=== PATIENT | female | born 1955 | race Caucasian/White ===

== ENCOUNTER 2020-01-24 07:09 | Outpatient (REF) | payer OTHER, SELFPAY ==
[2020-01-24 11:27] LABS: Estimated Average Glucose 148 mg/dL; Hemoglobin A1c % 6.8 %
[2020-01-24 11:45] LABS: Alanine Aminotransferase 60 U/L (0-31); Anion Gap 15 (12-20); Aspartate Amino Transferase 29 U/L (5-31); Blood Urea Nitrogen 14 mg/dL (9-16); Calcium 9.6 mg/dL (8.4-10.2); Carbon Dioxide 29 mmol/L (22-29); Chloride 103 mmol/L (96-108); Cholesterol 134 mg/dL; Estimated Glomerular Filt Rate > 60; Glucose Fasting 135 mg/dL (60-99); HDL Cholesterol 42 mg/dL; LDL Cholesterol Calculated 65 mg/dl; Potassium 4.7 mmol/l (3.3-5.1); Sodium 142 mmol/L (135-145); Triglycerides 139 mg/dL
[2020-01-24 11:57] LABS: Free T4 (Free Thyroxine) 1.13 ng/dL (0.71-1.85); Thyroid Stimulating Hormone 3.67 uIU/mL (0.32-4.0)
== END 2020-01-24 07:10 | disposition home or self-care (01) ==
LOC: HO.HMGCLDS 07:09
PROVIDERS: PCP Internal Medicine; Visit Provider Internal Medicine
DX: E11.9 Type 2 diabetes mellitus without complications (principal); I10 Essential (primary) hypertension; E78.5 Hyperlipidemia, unspecified; I25.10 Atherosclerotic heart disease of native coronary artery without angina pectoris
CPT/HCPCS: 80048; 80061; 83036; 84439; 84443; 84450; 84460

== ENCOUNTER 2020-11-21 08:59 | Outpatient (REF) | payer OTHER, SELFPAY ==
[2020-11-21 11:25] LABS: Estimated Average Glucose 140 mg/dL; Hemoglobin A1c % 6.5 %
[2020-11-21 11:26] LABS: Creatinine Urine 60.38 mg/dL; Microalbum/Creatinine Ratio Ur 9.9 ug/mg cr
[2020-11-21 11:30] LABS: Alanine Aminotransferase 33 U/L (0-31); Anion Gap 10 (12-20); Aspartate Amino Transferase 26 U/L (5-31); Blood Urea Nitrogen 12 mg/dL (9-16); Calcium 9.4 mg/dL (8.4-10.2); Carbon Dioxide 27 mmol/L (22-29); Chloride 107 mmol/L (96-108); Cholesterol 128 mg/dL; Estimated Glomerular Filt Rate > 60; Glucose Fasting 124 mg/dL (60-99); HDL Cholesterol 41 mg/dL; LDL Cholesterol Calculated 61 mg/dl; Potassium 4.2 mmol/L (3.3-5.1); Sodium 140 mmol/L (135-145); Triglycerides 132 mg/dL
[2020-11-21 11:44] LABS: Free T4 (Free Thyroxine) 1.04 ng/dL (0.71-1.85); Thyroid Stimulating Hormone 2.78 uIU/mL (0.32-4.0); Vitamin D 25-OH Total 22.2 ng/mL (>30)
== END 2020-11-21 09:00 | disposition home or self-care (01) ==
LOC: HO.HMGCLDS 08:59
PROVIDERS: PCP Internal Medicine; Visit Provider Internal Medicine
DX: E03.9 Hypothyroidism, unspecified (principal); E05.00 Thyrotoxicosis with diffuse goiter without thyrotoxic crisis or storm; E11.9 Type 2 diabetes mellitus without complications; E55.9 Vitamin D deficiency, unspecified; E78.5 Hyperlipidemia, unspecified; I10 Essential (primary) hypertension; I25.10 Atherosclerotic heart disease of native coronary artery without angina pectoris; K76.0 Fatty (change of) liver, not elsewhere classified; Z92.3 Personal history of irradiation; Z95.5 Presence of coronary angioplasty implant and graft
CPT/HCPCS: 36415; 80048; 80061; 82043; 82306; 83036; 84439; 84443; 84450; 84460

== ENCOUNTER 2021-08-31 07:03 | Outpatient (REF) | payer MEDICARE, SELFPAY ==
[2021-08-31 11:41] LABS: Estimated Average Glucose 140 mg/dL; Hemoglobin A1c % 6.5 %
[2021-08-31 11:57] LABS: Alanine Aminotransferase 47 U/L (0-31); Anion Gap 11 (12-20); Aspartate Amino Transferase 26 U/L (5-31); Blood Urea Nitrogen 13 mg/dL (9-16); Carbon Dioxide 27 mmol/L (22-29); Chloride 105 mmol/L (96-108); Cholesterol 157 mg/dL; Estimated Glomerular Filt Rate > 60; Glucose Fasting 145 mg/dL (60-99); HDL Cholesterol 38 mg/dL; LDL Cholesterol Calculated 67 mg/dl; Potassium 4.2 mmol/L (3.3-5.1); Sodium 139 mmol/L (135-145); Triglycerides 261 mg/dL
[2021-08-31 11:59] LABS: Free T4 (Free Thyroxine) 1.08 ng/dL (0.71-1.85); Thyroid Stimulating Hormone 4.73 uIU/mL (0.32-4.0); Vitamin D 25-OH Total 28.8 ng/mL (>30)
== END 2021-08-31 07:04 | disposition home or self-care (01) ==
LOC: HO.HMGCLDS 07:03
PROVIDERS: Visit Provider Internal Medicine
DX: E55.9 Vitamin D deficiency, unspecified (principal); E03.9 Hypothyroidism, unspecified; I10 Essential (primary) hypertension; E78.5 Hyperlipidemia, unspecified; E11.9 Type 2 diabetes mellitus without complications; Z78.0 Asymptomatic menopausal state
CPT/HCPCS: 36415; 80048; 80061; 82306; 83036; 84439; 84443; 84450; 84460

== ENCOUNTER 2021-12-06 07:00 | Outpatient (REF) | payer MEDICARE, SELFPAY ==
[2021-12-06 11:59] LABS: Creatinine Urine 153.41 mg/dL
[2021-12-06 12:04] LABS: Estimated Average Glucose 134 mg/dL; Hemoglobin A1c % 6.3 %
[2021-12-06 12:16] LABS: Alanine Aminotransferase 30 U/L (0-31); Anion Gap 14 (12-20); Aspartate Amino Transferase 24 U/L (5-31); Blood Urea Nitrogen 13 mg/dL (9-16); Calcium 9.8 mg/dL (8.4-10.2); Carbon Dioxide 28 mmol/L (22-29); Chloride 103 mmol/L (96-108); Cholesterol 178 mg/dL; Estimated Glomerular Filt Rate > 60; Glucose Fasting 141 mg/dL (60-99); HDL Cholesterol 42 mg/dL; LDL Cholesterol Calculated 91 mg/dl; Potassium 4.6 mmol/L (3.3-5.1); Sodium 140 mmol/L (135-145); Triglycerides 228 mg/dL
[2021-12-06 12:40] LABS: Free T4 (Free Thyroxine) 1.25 ng/dL (0.71-1.85); TSH reflex Free T4 3.17 uIU/mL (0.32-4.0); Vitamin D 25-OH Total 26.7 ng/mL (>30)
== END 2021-12-06 07:01 | disposition home or self-care (01) ==
LOC: HO.HMGCLDS 07:00
PROVIDERS: PCP Internal Medicine; Visit Provider Internal Medicine
DX: E11.9 Type 2 diabetes mellitus without complications (principal); E55.9 Vitamin D deficiency, unspecified; E78.5 Hyperlipidemia, unspecified; I10 Essential (primary) hypertension; E03.9 Hypothyroidism, unspecified
CPT/HCPCS: 36415; 80048; 80061; 82043; 82306; 83036; 84439; 84443; 84450; 84460

== ENCOUNTER 2022-03-08 08:32 | Outpatient (REF) | payer MEDICARE, SELFPAY ==
[2022-03-08 12:19] LABS: Estimated Average Glucose 134 mg/dL; Hemoglobin A1c % 6.3 %
[2022-03-08 12:39] LABS: Alanine Aminotransferase 42 U/L (0-31); Anion Gap 14 (12-20); Aspartate Amino Transferase 31 U/L (5-31); Blood Urea Nitrogen 16 mg/dL (9-16); Carbon Dioxide 28 mmol/L (22-29); Chloride 104 mmol/L (96-108); Cholesterol 165 mg/dL; Estimated Glomerular Filt Rate > 60; Glucose Fasting 124 mg/dL (60-99); HDL Cholesterol 41 mg/dL; LDL Cholesterol Calculated 90 mg/dl; Potassium 4.5 mmol/L (3.3-5.1); Sodium 141 mmol/L (135-145); Triglycerides 172 mg/dL
[2022-03-08 12:58] LABS: Creatinine Urine 175.78 mg/dL; Microalbum/Creatinine Ratio Ur 9.1 ug/mg cr
[2022-03-08 12:59] LABS: Free T4 (Free Thyroxine) 1.14 ng/dL (0.71-1.85); Thyroid Stimulating Hormone 2.81 uIU/mL (0.32-4.0); Vitamin D 25-OH Total 19.9 ng/mL (>30)
== END 2022-03-08 08:33 | disposition home or self-care (01) ==
LOC: HO.HMGCLDS 08:32
PROVIDERS: PCP Internal Medicine; Visit Provider Internal Medicine
DX: E11.9 Type 2 diabetes mellitus without complications (principal); E03.9 Hypothyroidism, unspecified; E78.5 Hyperlipidemia, unspecified; E55.9 Vitamin D deficiency, unspecified; I25.10 Atherosclerotic heart disease of native coronary artery without angina pectoris
CPT/HCPCS: 36415; 80048; 80061; 82043; 82306; 83036; 84439; 84443; 84450; 84460

== ENCOUNTER 2022-04-25 11:47 | Outpatient (REF) | payer MEDICARE, SELFPAY ==
--- NOTE | ~2022-04-25 | MM_ITS ---
EXAMINATION: MM SCREENING DIGITAL BREAST TOMOSYNTHESIS, BILATERAL CLINICAL INFORMATION: Screening. Asymptomatic. The lifetime risk of breast cancer based on the Tyrer-Cuzick Model is 4%. COMPARISON: Mammography: 11/11/2019, 07/09/2016, 04/18/2015 TECHNIQUE: Digital breast tomosynthesis is performed in both the craniocaudal and mediolateral oblique views along with computer-aided detection (CAD). Synthesized 2D images are generated from the tomosynthesis. FINDINGS: There are scattered areas of fibroglandular density (ACR BI-RADS breast composition Category b). There are no significant masses, abnormal calcifications, or other abnormalities. No architectural abnormality or developing density or significant change from prior studies. There are scattered stable asymmetries and some shifting fibroglandular tissue related to positioning. The axilla and skin contours are unremarkable. No significant changes from prior studies. MM/MM tomosynthesis screening BI IMPRESSION: No mammographic evidence of malignancy. ASSESSMENT: BI-RADS 2: Benign RECOMMENDATION: Routine annual mammography screening. This patient's information was entered into a reminder system with a target due date for their next mammogram.
== END 2022-04-25 11:48 | disposition home or self-care (01) ==
LOC: HO.MAMMO 11:47
PROVIDERS: PCP Internal Medicine; Visit Provider Internal Medicine
DX: Z12.31 Encounter for screening mammogram for malignant neoplasm of breast (principal)
CPT/HCPCS: 77063; 77067

== ENCOUNTER 2022-08-01 06:40 | Outpatient (REF) | payer MEDICARE, SELFPAY ==
[2022-08-01 11:47] LABS: Estimated Average Glucose 123 mg/dL; Hemoglobin A1c % 5.9 %
[2022-08-01 12:06] LABS: Anion Gap 11 (12-20); Blood Urea Nitrogen 19 mg/dL (9-16); Calcium 9.1 mg/dL (8.4-10.2); Carbon Dioxide 27 mmol/L (22-29); Chloride 106 mmol/L (96-108); Cholesterol 187 mg/dL; Estimated Glomerular Filt Rate > 60; Glucose Fasting 134 mg/dL (60-99); HDL Cholesterol 38 mg/dL; LDL Cholesterol Calculated 107 mg/dl; Potassium 4.2 mmol/L (3.3-5.1); Sodium 140 mmol/L (135-145); Triglycerides 213 mg/dL
[2022-08-01 12:12] LABS: Free T4 (Free Thyroxine) 0.94 ng/dL (0.71-1.85); Thyroid Stimulating Hormone 6.06 uIU/mL (0.32-4.0); Vitamin D 25-OH Total 51.3 ng/mL (>30)
== END 2022-08-01 06:41 | disposition home or self-care (01) ==
LOC: HO.HMGCLDS 06:40
PROVIDERS: PCP Internal Medicine; Visit Provider Internal Medicine
DX: E11.9 Type 2 diabetes mellitus without complications (principal); E55.9 Vitamin D deficiency, unspecified; E78.5 Hyperlipidemia, unspecified; I10 Essential (primary) hypertension; E03.9 Hypothyroidism, unspecified
CPT/HCPCS: 36415; 80048; 80061; 82306; 83036; 84439; 84443

== ENCOUNTER 2022-10-10 13:45 | Outpatient (REF) | payer MEDICARE, SELFPAY ==
[2022-10-10 13:48] VITALS: BP 142/64; PULSE 80; RESP 16; TEMP 36.3; O2SAT 97
[2022-10-10 14:07] VITALS: BMI 32.6
[2022-10-10 14:09] VITALS: BP 164/77; PULSE 86; RESP 18; TEMP 35.8; O2SAT 95
[2022-10-10 14:38] VITALS: BP 132/75; PULSE 77; RESP 18; O2SAT 96
[2022-10-10 15:50] VITALS: BMI 31.6
== END 2022-10-10 13:46 | disposition home or self-care (01) ==
LOC: HO.MS 13:45
PROVIDERS: PCP Internal Medicine; Visit Provider Ophthalmology
DX: H02.825 Cysts of left lower eyelid (principal)
CPT/HCPCS: 88304

== ENCOUNTER 2022-12-01 08:40 | Outpatient (REF) | payer MEDICARE, SELFPAY ==
[2022-12-01 12:19] LABS: Alanine Aminotransferase 27 U/L (0-31); Anion Gap 13 (12-20); Aspartate Amino Transferase 22 U/L (5-31); Blood Urea Nitrogen 16 mg/dL (9-16); Calcium 9.8 mg/dL (8.4-10.2); Carbon Dioxide 25 mmol/L (22-29); Chloride 106 mmol/L (96-108); Cholesterol 132 mg/dL (<200); Estimated Glomerular Filt Rate > 60; Glucose Fasting 114 mg/dL (60-99); HDL Cholesterol 40 mg/dL (>40); LDL Cholesterol Calculated 66 mg/dL (<100); Potassium 4.1 mmol/L (3.3-5.1); Sodium 140 mmol/L (135-145); Triglycerides 130 mg/dL (<150)
[2022-12-01 12:28] LABS: Free T4 (Free Thyroxine) 1.06 ng/dL (0.71-1.85); Thyroid Stimulating Hormone 2.06 uIU/mL (0.32-4.0)
[2022-12-01 12:50] LABS: Estimated Average Glucose 131 mg/dL; Hemoglobin A1c % 6.2 % (<6.0)
== END 2022-12-01 08:41 | disposition home or self-care (01) ==
LOC: HO.HMGCLDS 08:40
PROVIDERS: PCP Internal Medicine; Visit Provider Internal Medicine
DX: E03.9 Hypothyroidism, unspecified (principal); I10 Essential (primary) hypertension; E78.5 Hyperlipidemia, unspecified; E11.9 Type 2 diabetes mellitus without complications
CPT/HCPCS: 36415; 80048; 80061; 83036; 84439; 84443; 84450; 84460

== ENCOUNTER 2022-12-06 09:53 | Outpatient (AMB) | payer MEDICARE, SELFPAY ==
--- NOTE | 2022-12-06 10:07 | A.OFFPC_ITS ---
Vital Signs 12/06/22 10:08 Height 5 ft 4 in Weight 187 lb 6 oz BMI 32.2 BP 130/84 Blood Pressure Location Lt brachial Position Sitting Pulse 66 Pulse Source Pulse Oximeter Pulse Oximetry (%) 96 Oxygen Delivery Method Room Air Intake Visit Reasons: 4 month follow up Intake Note: pt is here for a 4month follow up on labs Allergies No Known Allergies [No Known Allergies*] Allergy (Verified 12/07/22 01:51) canagliflozin [Invokana] Adverse Reaction (Unknown, Verified 12/07/22 01:51) yeast infection metformin Adverse Reaction (Unknown, Verified 12/07/22 01:51) diarrhea Medication List - Last Reconciled 12/07/22 by Arlene Dawkins MD aspirin (Adult Aspirin Regimen) 81 mg PO DAILY ezetimibe 10 mg PO DAILY lancets (OneTouch UltraSoft Lancets) Test blood sugar once a day levothyroxine 112 mcg PO DAILY losartan 25 mg PO DAILY metoprolol succinate ER 50 mg PO DAILY omeprazole 20 mg PO DAILY OneTouch Ultra Test (blood sugar diagnostic) Test blood sugar once a day NS OneTouch Ultra2 Meter (blood-glucose meter) As directed NS rosuvastatin 40 mg PO DAILY sitagliptin phosphate (Januvia) 100 mg PO DAILY Tobacco use date assessed: 12/06/22 Fall risk assessment: 2 + Falls in past year Last assessed Fall Risk: 12/06/22 Dental Screening Dental Screen Date: 12/06/22 Did you have a dental visit in the last 12 months?: No Did you have a dental problem in the last 6 months where you did not have access to dental care?: No Was dental information given to patient?: No HPI 4 month follow up HPI Details 67-year-old lady here today for follow-u p. She has known CAD status post history of cardiac stenting, acquired hypothyroidism, hypertension, hyperlipidemia and type 2 diabetes mellitus,, stable controlled on present treatment. She had recent fasting labs done which showed electrolytes, fasting glucose, lipids and renal function as well as vitamin-D and thyroid levels within normal limits. She has been feeling well with no complaints at present time. [facility] Medical History Vitamin D deficiency Fracture of left tibia and fibula Diabetic retinopathy screening Menopause Vitamin D deficiency Tubular adenoma of colon Fatty liver Chronic GERD Uterine fibroid Acquired hypothyroidism History of radioactive iodine thyroid ablation Graves' disease in remission CAD (coronary artery disease) Essential hypertension Dyslipidemia Type 2 diabetes mellitus without complication, with no history of insulin use Surgical History History of heart artery stent Tibia/fibula fracture History of tubal ligation Family History Father Pancreatic cancer Mother Alzheimer's disease Dementia Breast cancer Social History Housing: House Alcohol intake: current Alcohol intake frequency: 0-2 drinks per day Patient Tobacco Use Status: Former Tobacco user Tobacco use type: Cigarette Years Smoked: 30 years e-Cigarette/Vaping Use: Never Used Current occupational status: employed (part ) and retired Cognitive needs: No Hearing needs: No Vision needs: Yes Questionnaire PHQ-9 Over the last 2 weeks, how often have you been bothered by any of the following problems? Depression Screening Interpretation: Negative Depression Screening Done: Yes Source: Developed by Drs. Evan Johnson, Sushila Juarez, Stan Blount and colleagues, with an educational pawan from [employer]. Thrive Questionnaire Date Thrive assessed: 12/09/21 BRIANNA-7 AMB Questionnaire BRIANNA-7 Date BRIANNA - 7 assessed: 03/22/22 Source: Developed by Drs. Evan Johnson, Sushila Juarez, Stan Blount and colleagues, with an educational pawan from [employer]. Review of Systems Const Denies body aches, Denies fatigue, Denies fever(s), Denies headache(s) and Denies weakness Eyes Details: sees Dr Elizondo , no retinopathy Denies change in vision ENT Denies dizziness, Denies headache(s), Denies nasal congestion, Denies nasal discharge and Denies sore throat Card Denies chest pain, Denies lightheadedness, Denies palpitations and Denies dyspnea Resp Denies chest congestion, Denies cough, Denies dyspnea and Denies wheezing GI Denies abdominal pain, Denies change in bowel habits and Denies heartburn Denies urinary frequency, Denies dysuria and Denies urinary urgency Musc Denies back pain, Denies myalgias, Denies joint swelling and Denies muscle weakness Skin/Breast Denies lesions and Denies rash Neuro Denies dizziness, Denies headache(s) and Denies weakness Psych Reports no additional complaints Endo Denies fatigue, Denies polydipsia, Denies polyuria and Denies palpitations Destin/Lymph Denies easy bruising Aller/Immun Denies seasonal rhinorrhea and Denies wheezing Physical exam (Primary Care) Vital Signs: Last Vital Signs Pulse 66 12/06/22 10:08 BP 130/84 12/06/22 10:08 Pulse Ox 96 12/06/22 10:08 Oxygen Delivery Method Room Air 12/06/22 10:08 BMI result Body Mass Index 32.2 Tobacco/Smoking Status: Tobacco use Status Tobacco use date assessed 12/06/22 12/06/22 10:13 Patient Tobacco Use Status Former Tobacco user 12/06/22 10:07 Tobacco use type Cigarette 12/06/22 10:07 e-Cigarette/Vaping Use Never Used 12/06/22 10:07 Depression Screening Interpretation: Negative Thrive Assessment: Date of Thrive Assessment Date Thrive assessed 12/09/21 12/06/22 10:07 Const General: cooperative, comfortable and no acute distress Nutritional Appearance: obese Orientation/consciousness: patient oriented x3 HENMT Ears: external ears normal and Abnormal EAC present excessive cerumen on the right General nose exam: Normal external nose present and No nasal discharge present Mouth: Normal oral and palatal mucosa present, oropharynx normal and moist mucous membranes Eyes General: appearance normal, both eyes and all related structures Conjunctivae: conjunctivae normal Pupils: Equal, round and reactive pupils present EOM: EOMs intact bilaterally Neck Neck: Yes full ROM, Yes no lymphadenopathy and Yes supple Resp Effort & Inspection: normal respiratory effort and able to speak in complete sentences Auscultation: clear to auscultation bilaterally Cardio Rate: regular rate Rhythm: regular rhythm Heart sounds: S1 normal heart sound present and S2 normal heart sound present GI Inspection: Yes normal to inspection Palpation (GI): Soft to palpation, nontender and no masses Auscultation: normal bowel sounds Back/Spine/Pelvis Cervical Spine: cervical ROM normal Thoracic/Lumbar Spine: thoracic and lumbar spine normal to inspection Skin General skin exam: no rashes or lesions noted Neuro General: patient oriented x3, gait normal, tone normal, moves all extremities, Normal light touch and pain sensation, no focal motor deficits and normal sensation to monofilament Cranial nerves: Yes Equal, round and reactive pupils present Cognition (Neuro): normal cognition Gait exam (Neuro): Normal gait present Motor exam (neuro): 5/5 motor strength present throughout Extrem General: Yes no joint enlargement, Yes no pedal edema, Yes no calf tenderness and Yes normal gait Immunizations pneumoc 20-eder conj-dip cr(PF) 0.5 mL IM syringe Performing Provider: Arlene Dawkins MD [place] [facility] [place] [facility] Administered by: Alicia Orellana CMA on 12/06/22 11:08 Dose Route Admin Location Dispensed Lot Number Expiration Date 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 0.5 mL IM Left Deltoid 0.5 mL [id number] 12/21/23 5022-9535-48 [employer] VIS Given Date VIS Provided VIS Publication Date 12/06/22 Single Vaccine 21 Eligibility Eligibility Date Funding Source Not [facility] Eligible 12/06/22 Private Results Reviewed Results Reviewed: ENTERED: 11/30/[address]: ORDERED: Met Prof Fast, AST, ALT, Lipid Panel, Vitamin D 25-OH, Free T4, TSH Test Result Flag Reference Site Sodium 139 135-145 mmol/L Potassium 4.3 3.3-5.1 mmol/L CL 106 96-108 mmol/L CO2 24 22-29 mmol/L Gap 13 12-20 BUN 13 9-16 mg/dL Creat 0.82 0.5-1.4 mg/dL EGFR > 60 NOTE: For -[place] individuals, multiply the result by 1.210. Chronic Kidney Disease: Estimated GFR < 60 mL/min/1.73m2 Severe Kidney Disease: Estimated GFR < 15 mL/min/1.73m2 FBS 78 60-99 mg/dL CA 9.8 # 8.4-10.2 mg/dL AST (GOT) 22 5-37 U/L ALT (GPT) 20 0-40 U/L Triglyceride 84 <150 mg/dL Desirable Triglyceride: less than 150 mg/dL Borderline High Triglyceride 150-199 mg/dL High Triglyceride: 200-499 mg/dL Very High Triglyceride: greater than or equal to 5OO mg/dL Cholesterol 159 <200 mg/dL Desirable Cholesterol: less than 200 mg/dL Borderline High Cholesterol: 200-239 mg/dL High Cholesterol: greater than 239 mg/dL LDL Calculated 100 H <100 mg/dL Desirable LDL: less than 100 mg/dL Near Optimal/Above Optimal LDL: 110-129 mg/dL Borderline High LDL: 130-159 mg/dL High LDL: 160-189 mg/dL Very High LDL: greater than or equal to 190 mg/dL HDL 43 >40 mg/dL Desirable HDL: greater than 40 mg/dL Note: This HDL assay may give artificially low results in patients with liver disease. Vit D 25-OH Tot 59.4 >30 ng/mL Health Based Reference Values* < 20 ng/mL Deficient 20-30 ng/mL Insufficient > 30 ng/mL Sufficient *Jen PIEDRA. N Engl J Med. 2007;357:266-280 Care must be taken in interpreting Vitamin D results from different laboratories and methodologies. Published data demonstrated that results from patients undergoing hemodialysis may show a negative bias when tested with various automated 25-OH vitamin D assays when compared to LC-MS/MS. When testing samples from patients whose predominant form of Vitamin D is Vitamin D2, such as patients receiving Vitamin D2 supplementation, results that are subtherapeutic should be confirmed with another method such as LC-MS/MS. Free T4 1.10 0.71-1.85 ng/dL TSH 3rd Gen. 0.96 0.32-4.0 uIU/mL Laboratory Tests 12/01/22 08:52 Estimat Average Glucose 131 Hemoglobin A1c % 6.2 H Assessment and Plan Assessment & Plan (1) Need for pneumococcal 20-valent conjugate vaccination: Code(s): Z23 - Encounter for immunization Plan: Prevnar 20 given today (2) Tubular adenoma of colon: Comment: Seen on colonoscopy done [address] Cunningham to be repeated in 5 years Code(s): D12.6 - Benign neoplasm of colon, unspecified Plan: Reminded to call Dr. Ovalle so office to schedule colonoscopy appointment (3) Fatty liver: Code(s): K76.0 - Fatty (change of) liver, not elsewhere classified Plan: Encouraged to continue with adhering to a healthy diet, get regular exercise in order to lose weight. (4) Chronic GERD: Code(s): K21.9 - Gastro-esophageal reflux disease without esophagitis Plan: Advised to call GI clinic to schedule an appointment regarding chronic GERD, recommend getting an upper endoscopy (5) Acquired hypothyroidism: Code(s): E03.9 - Hypothyroidism, unspecified Plan: Thyroid levels are within normal limits, continue current dose of levothyroxine (6) CAD (coronary artery disease): Code(s): I25.10 - Atherosclerotic heart disease of [place] coronary artery without angina pectoris Plan: Continue aspirin 81 mg daily daily and metoprolol succinate ER 50 mg daily, reminded to schedule appointment for follow-up with her book jogger, Dr. Morrell, last seen more than 3 years ago (7) History of heart artery stent: Code(s): Z95.5 - Presence of coronary angioplasty implant and graft Plan: Advised to schedule appointment with Cardiology for follow-up (8) Essential hypertension: Code(s): I10 - Essential (primary) hypertension Plan: Blood pressure at goal of less than 130/80. Continue with current medication. Reinforced importance of following a low sodium diet, getting regular exercise, and lowering stress levels. (9) Dyslipidemia: Code(s): E78.5 - Hyperlipidemia, unspecified Plan: Reviewed recent fasting lipid profile with patient with LDL cholesterol at 100 mg/dL, goal is less than 70 mg per dL . Will continue with ezetimibe and rosuvastatin 40 mg daily, , in addition to adherence to low-cholesterol diet and regular exercise, at least 30 minutes 3 to 4 times a week. Advised patient to make healthy food choices, eat more fruits, vegetables, whole grains, wild caught fish and low-fat dairy. Limit amount of meat and fried or fatty food pro ducts, as well as processed foods and fast foods. (10) Type 2 diabetes mellitus without complication, with no history of insulin use: Code(s): E11.9 - Type 2 diabetes mellitus without complications Plan: Diabetes mellitus controlled, with hemoglobin A1c at 6.2%. Continued on sitagliptin 100 mg daily Orders: Orders Pneumococcal 20 Immunization 12/06/22 Z23 - Encounter for immunization Medications: Refilled levothyroxine 112 mcg PO DAILY 90 tabs 3RF E03.9 - Hypothyroidism, unspecified losartan 25 mg PO DAILY 90 tabs 3RF metoprolol succinate ER 50 mg PO DAILY 90 tabs 3RF rosuvastatin 40 mg PO DAILY 90 tabs 3RF omeprazole 20 mg PO DAILY 90 caps 3RF sitagliptin phosphate (Januvia) 100 mg PO DAILY 90 tabs 3RF Coding Level of Care Code Est Pt Level 4 (65525) Diagnoses Need for pneumococcal 20-valent conjugate vaccination Z23 Tubular adenoma of colon D12.6 Fatty liver K76.0 Chronic GERD K21.9 Acquired hypothyroidism E03.9 CAD (coronary artery disease) I25.10 History of heart artery stent Z95.5 Essential hypertension I10 Dyslipidemia E78.5 Type 2 diabetes mellitus without complication, with no history of insulin use E11.9
[2022-12-06 10:08] VITALS: BP 130/84; PULSE 66; O2SAT 96; BMI 32.2
== END 2022-12-06 11:39 | disposition home or self-care (01) ==
PROVIDERS: PCP Internal Medicine; Visit Provider Internal Medicine
DX: Z23 Encounter for immunization (principal)
CPT/HCPCS: 90471; 90677; 99214

== ENCOUNTER 2023-03-27 09:22 | Outpatient (AMB) | payer MEDICARE, SELFPAY ==
--- NOTE | 2023-03-27 09:30 | MHC.PC.OV ---
Vital Signs 03/27/23 09:37 Height 5 ft 4 in Weight 189 lb BMI 32.4 BP 122/70 Blood Pressure Location Rt brachial Position Sitting Pulse 67 Pulse Source Pulse Oximeter Pulse Oximetry (%) 96 Oxygen Delivery Method Room Air Intake Visit Reasons: Annual PE Intake Note: Pt is here today her PE: Last mammogram 04/25/22, bone density scan 10/08/19, colonoscopy 07/07/15 Allergies No Known Allergies [No Known Allergies*] Allergy (Verified 03/27/23 09:59) canagliflozin [Invokana] Adverse Reaction (Unknown, Verified 03/27/23 09:59) yeast infection metformin Adverse Reaction (Unknown, Verified 03/27/23 09:59) diarrhea Medication List - Last Reconciled 03/27/23 by Arlene Dawkins MD aspirin (Adult Aspirin Regimen) 81 mg PO DAILY ezetimibe 10 mg PO DAILY lancets Test blood sugar once a day levothyroxine 112 mcg PO DAILY losartan 25 mg PO DAILY metoprolol succinate ER 50 mg PO DAILY omeprazole 20 mg PO DAILY OneTouch Ultra Test (blood sugar diagnostic) Test blood sugar once a day NS OneTouch Ultra2 Meter (blood-glucose meter) As directed NS rosuvastatin 40 mg PO DAILY sitagliptin phosphate (Januvia) 100 mg PO DAILY Tobacco use date assessed: 03/27/23 Fall risk assessment: 1 Fall in past year Last assessed Fall Risk: 03/27/23 Dental Screening Dental Screen Date: 03/27/23 Did you have a dental visit in the last 12 months?: No Was dental information given to patient?: No HPI Annual PE HPI Details 67-year-old lady here today for physical exam. She had a mammogram 04/25/22, bone density scan 10/08/19 showed normal bone density, colonoscopy 07/07/[address] Cunningham showed presence of 3 tubular adenomas which were removed, overdue for a repeat screening colonoscopy She has a history of Graves disease status post radioactive iodine thyroid ablation, with subsequent hypothyroidism, has type 2 diabetes mellitus with no history of insulin use, hypertension, hyperlipidemia, chronic GERD She is up-to-date with her adult vaccinations, but has not yet had her RSV or her shingles vaccine [facility] Medical History (Updated 04/09/23 @ 23:40 by Arlene Dawkins MD) Encounter for annual wellness visit (AWV) in Medicare patient Vitamin D deficiency Fracture of left tibia and fibula Diabetic retinopathy screening Menopause Vitamin D deficiency Tubular adenoma of colon Fatty liver Chronic GERD Uterine fibroid Acquired hypothyroidism History of radioactive iodine thyroid ablation Graves' disease in remission CAD (coronary artery disease) Essential hypertension Dyslipidemia Type 2 diabetes mellitus without complication, with no history of insulin use Surgical History History of heart artery stent Tibia/fibula fracture History of tubal ligation Family History Father Pancreatic cancer Mother Alzheimer's disease Dementia Breast cancer Social History Housing: House Alcohol intake: current Alcohol intake frequency: 0-2 drinks per day Patient Tobacco Use Status: Former Tobacco user Tobacco use type: Cigarette Years Smoked: 30 years e-Cigarette/Vaping Use: Never Used Current occupational status: retired Cognitive needs: No Hearing needs: No Vision needs: Yes Questionnaire PHQ-9 Over the last 2 weeks, how often have you been bothered by any of the following problems? 1. Little interest or pleasure in doing things: not at all 2. Feeling down, depressed, or hopeless: not at all 3. Trouble falling or staying asleep, or sleeping too much: not at all 4. Feeling tired or having little energy: not at all 5. Poor appetite or overeating: not at all 6. Feeling bad about yourself - or that you are a failure or have let yourself or your family down: not at all 7. Trouble concentrating on things, such as reading the newspaper or watching television: not at all 8. Moving or speaking so slowly that other people could have noticed. Or the opposite - being so fidgety or restless that you have been moving around a lot more than usual: not at all 9. Thoughts that you would be better off or of hurting yourself in some way: not at all Total score: 0 Depression Screening Interpretation: Negative Depression Screening Done: Yes 08384 - PHQ-9 Billing: Yes Source: Developed by Drs. Evan Johnson, Sushila Juarez, Stan Blount and colleagues, with an educational pawan from [employer]. Thrive Questionnaire Date Thrive assessed: 03/27/23 I am a: Patient What is your living situation today?: I have a steady place to live Within the past 12 months, did the food you bought not last and you didn't have the money to get more?: Never true Within the past 12 months, did you worry whether your food would run out before you got money to buy more?: Never true Do you have trouble paying for medicines?: No Do you have trouble getting transportation to medical appointments?: No Do you have trouble paying your heating and electricity bill?: No Do you have trouble taking care of your child, family member or friend?: No Do you have trouble with day-to-day activities such as bathing, preparing meals, shopping, managing finances, etc.?: No Are you currently unemployed and looking for a job?: No Are you interested in more education?: No THRIVE Score: 0 AUDIT C Alcohol Use Questionnaire (AUDIT-C) 1. How often do you have a drink containing alcohol?: Monthly or less 2. How many drinks containing alcohol do you have on a typical day when you are drinking?: 1 or 2 3. How often do you have six or more drinks on one occasion?: Never Total Score: 1 BRIANNA-7 AMB Questionnaire BRIANNA-7 Date BRIANNA - 7 assessed: 03/27/23 Feeling nervous, anxious, or on edge: 0 = Not at all Not being able to stop or control worryin = Not at all Worrying too much about different things: 0 = Not at all Trouble relaxin = Not at all Being so restless that it is hard to sit still: 0 = Not at all Becoming easily annoyed or irritable: 0 = Not at all Feeling afraid as if something awful might happen: 0 = Not at all Total BRIANNA-7 score (0-4 normal; 5-9 mild; 10-14 moderate; 15-21 severe): 0 Source: Developed by Drs. Evan Johnson, Sushila Juarez, Stan Blount and colleagues, with an educational pawan from [employer]. BRIANNA-7 Assessment Billing BRIANNA-7 Assessment Tool: BRIANNA-7 Assessment 22653 Review of Systems Const Denies body aches, Denies fatigue, Denies fever(s), Denies headache(s) and Denies weakness Eyes Details: sees Dr Elizondo , no retinopathy Denies change in vision ENT Denies dizziness, Denies headache(s), Denies nasal congestion, Denies nasal discharge and Denies sore throat Card Denies chest pain, Denies lightheadedness, Denies palpitations and Denies dyspnea Resp Denies chest congestion, Denies cough, Denies dyspnea and Denies wheezing GI Denies abdominal pain, Denies change in bowel habits and Denies heartburn Denies urinary frequency, Denies dysuria and Denies urinary urgency Musc Denies back pain, Denies myalgias, Denies joint swelling and Denies muscle weakness Skin/Breast Denies lesions and Denies rash Neuro Denies dizziness, Denies headache(s) and Denies weakness Psych Reports no additional complaints Endo Denies fatigue, Denies polydipsia, Denies polyuria and Denies palpitations [place]in/Lymph Denies easy bruising Aller/Immun Denies seasonal rhinorrhea and Denies wheezing Physical exam (Primary Care) Vital Signs: Last Vital Signs Pulse 67 03/27/23 09:37 BP 122/70 03/27/23 09:37 Pulse Ox 96 03/27/23 09:37 Oxygen Delivery Method Room Air 03/27/23 09:37 BMI result Body Mass Index 32.4 Tobacco/Smoking Status: Tobacco use Status Tobacco use date assessed 03/27/23 03/27/23 09:40 Patient Tobacco Use Status Former Tobacco user 03/27/23 09:40 Tobacco use type Cigarette 03/27/23 09:40 e-Cigarette/Vaping Use Never Used 03/27/23 09:40 PHQ-9: PHQ-9 Score PHQ-9: Total score 0 04/09/23 23:42 Depression Screening Interpretation: Negative Thrive Assessment: Date of Thrive Assessment Date Thrive assessed 03/27/23 03/27/23 09:40 Const General: cooperative, comfortable and no acute distress Nutritional Appearance: obese Orientation/consciousness: patient oriented x3 HENMT Ears: external ears normal General nose exam: Normal external nose present Mouth: oropharynx normal and moist mucous membranes Eyes General: appearance normal, both eyes and all related structures Conjunctivae: conjunctivae normal Pupils: Equal, round and reactive pupils present EOM: EOMs intact bilaterally Neck Neck: Yes full ROM, Yes no lymphadenopathy and Yes supple Chest Breast/axilla palpation: normal palpation of the breasts Resp Effort & Inspection: normal respiratory effort and able to speak in complete sentences Auscultation: clear to auscultation bilaterally Cardio Rate: regular rate Rhythm: regular rhythm Heart sounds: S1 normal heart sound present and S2 normal heart sound present GI Inspection: Yes normal to inspection Palpation (GI): Soft to palpation, nontender and no masses Auscultation: normal bowel sounds Back/Spine/Pelvis Cervical Spine: cervical ROM normal Thoracic/Lumbar Spine: thoracic and lumbar spine normal to inspection Skin General skin exam: no rashes or lesions noted Neuro General: patient oriented x3, gait normal, tone normal, moves all extremities, Normal light touch and pain sensation, no focal motor deficits and normal sensation to monofilament Cranial nerves: Yes Equal, round and reactive pupils present Cognition (Neuro): normal cognition Gait exam (Neuro): Normal gait present Motor exam (neuro): 5/5 motor strength present throughout Extrem General: Yes no joint enlargement, Yes no pedal edema, Yes no calf tenderness and Yes normal gait Psych Appearance: grossly normal and well kempt Mental Status: mental status grossly normal Speech and movement: Normal speech and movement present Affect: normal affect Attitude: cooperative Thought process: Normal thought process present Results AMB Hemoglobin A1c AMB Hemoglobin A1c 6.4 % Last Edit by Rula Gaspar CMA on 03/27/23 10:01 Results Reviewed Results Reviewed: Laboratory Last Values Hgb A1c (Clinic) 6.4 % (4.0-6.0) H 03/27/23 09:49 Assessment and Plan Assessment & Plan (1) Annual visit for general adult medical examination with abnormal findings: Code(s): Z00.01 - Encounter for general adult medical examination with abnormal findings Plan: Will check appropriate labs. Recommended dental visit every 6 months and yearly eye exams checked for retinopathy and eye exam . Take adequate calcium in diet and vitamin-D 3 at 2000 IU per cap once a day, in addition to weight-bearing exercises to help maintain good muscle tone and weight control. Instructed to do self-breast exam, and get yearly mammogram, due again next month. Up-to-date with all her vaccinations, but has not yet had her shingles vaccine. Patient is overdue for a screening colonoscopy, will contact [facility] to be scheduled (2) Type 2 diabetes mellitus without complication, with no history of insulin use: Code(s): E11.9 - Type 2 diabetes mellitus without complications Plan: Recent lab results reviewed with patient, with sugar and hemoglobin A1c at goal but it was hemoglobin A1c is higher than the last check. Will start on metformin ER 500 mg take 1 tablet at night with supper. continue to check fasting blood sugar at home, maintain log and bring to next appointment for review. Reinforced diabetic diet and regular exercise with patient. Counseled regarding importance of yearly diabetes retinopathy screening, currently up-to-date. Patient advised to inspect feet daily, for any signs of injury, callus or infection. Compliance with diet and regular exercise again stressed. Blood pressure goal is less than 130/80, goal LDL is less than 100 and goal hemoglobin A1c is less than 7% follow-up appointment made in--3-months, after fasting labs done. (3) Acquired hypothyroidism: Code(s): E03.9 - Hypothyroidism, unspecified Plan: Continue levothyroxine, will check TSH and free T4 levels (4) CAD (coronary artery disease): Code(s): I25.10 - Atherosclerotic heart disease of [place] coronary artery without angina pectoris Plan: Continue aspirin 81 mg daily, reinforced importance of keeping diabetes mellitus, hypertension high per lipidemia well controlled (5) Essential hypertension: Code(s): I10 - Essential (primary) hypertension Plan: Blood pressure at goal of less than 130/80. Continue with losartan 25 mg daily in a.m.. Reinforced importance of following a low sodium diet, getting regular exercise, and lowering stress levels. (6) Dyslipidemia: Code(s): E78.5 - Hyperlipidemia, unspecified Plan: Fasting lipid panel ordered. Continue ezetimibe 10 mg daily and rosuvastatin 40 mg daily. Stressed importance of following a healthy diet and getting regular exercise. (7) Tubular adenoma of colon: Comment: Seen on colonoscopy done [address] Cunningham to be repeated in 5 years Code(s): D12.6 - Benign neoplasm of colon, unspecified Plan: Will check CBC, repeat colonoscopy due, patient states she will contact [facility] to schedule (8) Chronic GERD: Code(s): K21.9 - Gastro-esophageal reflux disease without esophagitis Plan: Continue omeprazole 20 mg daily Orders: Orders Free T4 (Free Thyroxine) 3 Months E03.9 - Hypothyroidism, unspecified, I25.10 - Atherosclerotic heart disease of [place] coronary artery without angina pectoris, I10 - Essential (primary) hypertension, E78.5 - Hyperlipidemia, unspecified, E11.9 - Type 2 diabetes mellitus without complications Aspartate Amino Transferase 3 Months E03.9 - Hypothyroidism, unspecified, I25.10 - Atherosclerotic heart disease of [place] coronary artery without angina pectoris, I10 - Essential (primary) hypertension, E78.5 - Hyperlipidemia, unspecified, E11.9 - Type 2 diabetes mellitus without complications Basic Metabolic Panel Fasting 3 Months E03.9 - Hypothyroidism, unspecified, I25.10 - Atherosclerotic heart disease of [place] coronary artery without angina pectoris, I10 - Essential (primary) hypertension, E78.5 - Hyperlipidemia, unspecified, E11.9 - Type 2 diabetes mellitus without complications Hemoglobin A1c 3 Months E03.9 - Hypothyroidism, unspecified, I25.10 - Atherosclerotic heart disease of [place] coronary artery without angina pectoris, I10 - Essential (primary) hypertension, E78.5 - Hyperlipidemia, unspecified, E11.9 - Type 2 diabetes mellitus without complications Microalbumin, Random (w Creat) 3 Months E03.9 - Hypothyroidism, unspecified, I25.10 - Atherosclerotic heart disease of [place] coronary artery without angina pectoris, I10 - Essential (primary) hypertension, E78.5 - Hyperlipidemia, unspecified, E11.9 - Type 2 diabetes mellitus without complications AMB Hemoglobin A1c 03/27/23 Z13.5 - Encounter for screening for eye and ear disorders Thyroid Stimulating Hormone 3 Months E03.9 - Hypothyroidism, unspecified, I25.10 - Atherosclerotic heart disease of [place] coronary artery without angina pectoris, I10 - Essential (primary) hypertension, E78.5 - Hyperlipidemia, unspecified, E11.9 - Type 2 diabetes mellitus without complications Lipid Panel 3 Months E03.9 - Hypothyroidism, unspecified, I25.10 - Atherosclerotic heart disease of [place] coronary artery without angina pectoris, I10 - Essential (primary) hypertension, E78.5 - Hyperlipidemia, unspecified, E11.9 - Type 2 diabetes mellitus without complications Alanine Aminotransferase 3 Months E03.9 - Hypothyroidism, unspecified, I25.10 - Atherosclerotic heart disease of [place] coronary artery without angina pectoris, I10 - Essential (primary) hypertension, E78.5 - Hyperlipidemia, unspecified, E11.9 - Type 2 diabetes mellitus without complications Vitamin D 25-OH Total 3 Months E03.9 - Hypothyroidism, unspecified, I25.10 - Atherosclerotic heart disease of [place] coronary artery without angina pectoris, I10 - Essential (primary) hypertension, E78.5 - Hyperlipidemia, unspecified, E11.9 - Type 2 diabetes mellitus without complications Medications: New metformin ER 500 mg PO DAILY 90 tabs 0RF Coding Level of Care Code Est Pt Prev Care >65y(44934) Diagnoses Annual visit for general adult medical examination with abnormal findings Z00.01 Type 2 diabetes mellitus without complication, with no history of insulin use E11.9 Acquired hypothyroidism E03.9 CAD (coronary artery disease) I25.10 Essential hypertension I10 Dyslipidemia E78.5 Tubular adenoma of colon D12.6 Chronic GERD K21.9 Additional Codes BRIANNA-7 Assessment Billing - BRIANNA-7 Assessment Tool: BRIANNA-7 Assessment [id number] ([id number])
[2023-03-27 09:37] VITALS: BP 122/70; PULSE 67; O2SAT 96; BMI 32.4
== END 2023-03-27 10:24 | disposition home or self-care (01) ==
PROVIDERS: PCP Internal Medicine; Visit Provider Internal Medicine
DX: Z00.01 Encounter for general adult medical examination with abnormal findings (principal); E11.9 Type 2 diabetes mellitus without complications; E03.9 Hypothyroidism, unspecified; I25.10 Atherosclerotic heart disease of native coronary artery without angina pectoris; I10 Essential (primary) hypertension; E78.5 Hyperlipidemia, unspecified; D12.6 Benign neoplasm of colon, unspecified; K21.9 Gastro-esophageal reflux disease without esophagitis
CPT/HCPCS: 83036; 99214; 99397

== ENCOUNTER 2023-05-01 11:43 | Outpatient (REF) | payer MEDICARE, SELFPAY | END 2023-05-01 11:44 | disposition home or self-care (01) | LOC: HO.MAMMO 11:43 | PROVIDERS: PCP Internal Medicine; Visit Provider Internal Medicine | DX: Z12.31 Encounter for screening mammogram for malignant neoplasm of breast (principal) | CPT/HCPCS: 77063; 77067 ==

== ENCOUNTER → 2023-05-01 12:00 | Outpatient (BNV) | payer MEDICARE, SELFPAY | PROVIDERS: PCP Internal Medicine; Visit Provider Radiology Diagnostic Radiology | DX: Z12.31 Encounter for screening mammogram for malignant neoplasm of breast (principal) | CPT/HCPCS: 77063; 77067 ==

== ENCOUNTER 2023-06-24 08:07 | Outpatient (REF) | payer MEDICARE, SELFPAY ==
[2023-06-24 11:33] LABS: Estimated Average Glucose 148 mg/dL; Hemoglobin A1c % 6.8 % (<6.0)
[2023-06-24 11:37] LABS: Alanine Aminotransferase 28 U/L (0-31); Anion Gap 13 (12-20); Aspartate Amino Transferase 21 U/L (5-31); Blood Urea Nitrogen 10 mg/dL (9-16); Calcium 9.6 mg/dL (8.4-10.2); Carbon Dioxide 27 mmol/L (22-29); Chloride 105 mmol/L (96-108); Cholesterol 117 mg/dL (<200); Estimated Glomerular Filt Rate > 60; Glucose Fasting 119 mg/dL (60-99); HDL Cholesterol 38 mg/dL (>40); LDL Cholesterol Calculated 34 mg/dL (<100); Potassium 3.9 mmol/L (3.3-5.1); Sodium 141 mmol/L (135-145); Triglycerides 225 mg/dL (<150)
[2023-06-24 11:40] LABS: Creatinine Urine 77.18 mg/dL; Microalbum/Creatinine Ratio Ur 7.7 ug/mg cr (<30)
[2023-06-24 11:52] LABS: Free T4 (Free Thyroxine) 1.16 ng/dL (0.71-1.85); Thyroid Stimulating Hormone 1.47 uIU/mL (0.32-4.0); Vitamin D 25-OH Total 36.4 ng/mL (>30)
== END 2023-06-24 08:08 | disposition home or self-care (01) ==
LOC: HO.HMGCLDS 08:07
PROVIDERS: PCP Internal Medicine; Visit Provider Internal Medicine
DX: E03.9 Hypothyroidism, unspecified (principal); I25.10 Atherosclerotic heart disease of native coronary artery without angina pectoris; I10 Essential (primary) hypertension; E78.5 Hyperlipidemia, unspecified; E11.9 Type 2 diabetes mellitus without complications
CPT/HCPCS: 36415; 80048; 80061; 82043; 82306; 82570; 83036; 84439; 84443; 84450; 84460

== ENCOUNTER 2023-06-28 10:41 | Outpatient (AMB) | payer MEDICARE, SELFPAY ==
[2023-06-28 11:10] VITALS: BP 130/70; PULSE 74; O2SAT 97; BMI 31.8
--- NOTE | 2023-06-28 11:10 | A.OFFPC_ITS ---
Vital Signs 06/28/23 11:10 Height 5 ft 4 in Weight 185 lb BMI 31.8 BP 130/70 Blood Pressure Location Rt brachial Position Sitting Pulse 74 Pulse Source Pulse Oximeter Pulse Oximetry (%) 97 Oxygen Delivery Method Room Air Intake Visit Reasons: 3mo - see comments Intake Note: pt is here for 3 month follow up Allergies No Known Allergies [No Known Allergies*] Allergy (Verified 06/28/23 11:35) canagliflozin [Invokana] Adverse Reaction (Unknown, Verified 06/28/23 11:35) yeast infection metformin Adverse Reaction (Unknown, Verified 06/28/23 11:35) diarrhea Medication List - Last Reconciled 06/28/23 by Arlene Dawkins MD aspirin (Adult Aspirin Regimen) 81 mg PO DAILY ezetimibe 10 mg PO DAILY lancets Test blood sugar once a day levothyroxine 112 mcg PO DAILY losartan 25 mg PO DAILY metformin ER 500 mg PO DAILY metoprolol succinate ER 50 mg PO DAILY omeprazole 20 mg PO DAILY OneTouch Ultra Test (blood sugar diagnostic) Test blood sugar once a day NS OneTouch Ultra2 Meter (blood-glucose meter) As directed NS rosuvastatin 40 mg PO DAILY sitagliptin phosphate (Januvia) 100 mg PO DAILY Tobacco use date assessed: 03/27/23 Fall risk assessment: No Falls in past year Last assessed Fall Risk: 06/28/23 Dental Screening Dental Screen Date: 03/27/23 HPI 3mo - see comments HPI Details 68-year-old lady with history of hyperte nsion, hyperlipidemia and diabetes mellitus, here today for follow-up. She has been compliant with taking her medications, has been feeling well with no complaints at present time. [facility], [facility] Medical History (Updated 06/28/23 @ 11:50 by Arlene Dawkins MD) Encounter for annual wellness visit (AWV) in Medicare patient Vitamin D deficiency Fracture of left tibia and fibula Diabetic retinopathy screening Menopause Vitamin D deficiency Tubular adenoma of colon Fatty liver Chronic GERD Uterine fibroid Acquired hypothyroidism History of radioactive iodine thyroid ablation Graves' disease in remission CAD (coronary artery disease) Essential hypertension Dyslipidemia Type 2 diabetes mellitus without complication, with no history of insulin use Surgical History History of heart artery stent Tibia/fibula fracture History of tubal ligation Family History Father Pancreatic cancer Mother Alzheimer's disease Dementia Breast cancer Social History Housing: House Alcohol intake: current Alcohol intake frequency: 0-2 drinks per day Patient Tobacco Use Status: Former Tobacco user Tobacco use type: Cigarette Years Smoked: 30 years e-Cigarette/Vaping Use: Never Used Current occupational status: retired Cognitive needs: No Hearing needs: No Vision needs: Yes Questionnaire PHQ-9 Over the last 2 weeks, how often have you been bothered by any of the following problems? 1. Little interest or pleasure in doing things: not at all 2. Feeling down, depressed, or hopeless: not at all 3. Trouble falling or staying asleep, or sleeping too much: not at all 4. Feeling tired or having little energy: not at all 5. Poor appetite or overeating: not at all 6. Feeling bad about yourself - or that you are a failure or have let yourself or your family down: not at all 7. Trouble concentrating on things, such as reading the newspaper or watching television: not at all 8. Moving or speaking so slowly that other people could have noticed. Or the opposite - being so fidgety or restless that you have been moving around a lot more than usual: not at all 9. Thoughts that you would be better off or of hurting yourself in some way: not at all Total score: 0 Depression Screening Interpretation: Negative Depression Screening Done: Yes [id number] - PHQ-9 Billing: Yes Source: Developed by Drs. Evan Johnson, Sushila Juarez, Stan Blount and colleagues, with an educational pawan from [employer]. Thrive Questionnaire Date Thrive assessed: 03/27/23 BRIANNA-7 AMB Questionnaire BRIANNA-7 Date BRIANNA - 7 assessed: 03/27/23 Source: Developed by Drs. Evan Johnson, Sushila Juarez, Stan Blount and colleagues, with an educational pawan from [employer]. Review of Systems Const Denies body aches, Denies fatigue, Denies fever(s), Denies headache(s) and Denies weakness Eyes Details: Dr. Elizondo, appointment upcoming November 2023 Denies change in vision ENT Denies dizziness, Denies headache(s), Denies nasal congestion, Denies nasal discharge and Denies sore throat Card Denies chest pain, Denies lightheadedness, Denies palpitations and Denies dyspnea Resp Denies chest congestion, Denies cough, Denies dyspnea and Denies wheezing GI Denies abdominal pain, Denies change in bowel habits and Denies heartburn Denies urinary frequency, Denies dysuria and Denies urinary urgency Musc Denies back pain, Denies myalgias, Denies joint swelling and Denies muscle weakness Skin/Breast Denies lesions and Denies rash Neuro Denies dizziness, Denies headache(s) and Denies weakness Psych Reports no additional complaints Endo Denies fatigue, Denies polydipsia, Denies polyuria and Denies palpitations Destin/Lymph Denies easy bruising Aller/Immun Denies seasonal rhinorrhea and Denies wheezing Physical exam (Primary Care) Vital Signs: Last Vital Signs Pulse 74 06/28/23 11:10 BP 130/70 06/28/23 11:10 Pulse Ox 6 L 06/28/23 11:10 BMI result Body Mass Index 31.8 Tobacco/Smoking Status: Tobacco use Status Tobacco use date assessed 03/27/23 06/28/23 11:14 Patient Tobacco Use Status Former Tobacco user 06/28/23 11:14 Tobacco use type Cigarette 06/28/23 11:14 e-Cigarette/Vaping Use Never Used 06/28/23 11:14 PHQ-9: PHQ-9 Score PHQ-9: Total score 0 06/28/23 11:36 Depression Screening Interpretation: Negative Thrive Assessment: Date of Thrive Assessment Date Thrive assessed 03/27/23 06/28/23 11:14 Const General: cooperative, comfortable and no acute distress Nutritional Appearance: obese Orientation/consciousness: patient oriented x3 HENMT Ears: external ears normal General nose exam: Normal external nose present Mouth: oropharynx normal and moist mucous membranes Eyes General: appearance normal, both eyes and all related structures Conjunctivae: conjunctivae normal Pupils: Equal, round and reactive pupils present EOM: EOMs intact bilaterally Neck Neck: Yes full ROM, Yes no lymphadenopathy and Yes supple Resp Effort & Inspection: normal respiratory effort and able to speak in complete sentences Auscultation: clear to auscultation bilaterally Cardio Rate: regular rate Rhythm: regular rhythm Heart sounds: S1 normal heart sound present and S2 normal heart sound present GI Inspection: Yes normal to inspection Palpation (GI): Soft to palpation, nontender and no masses Auscultation: normal bowel sounds Neuro General: patient oriented x3, gait normal, tone normal, moves all extremities, Normal light touch and pain sensation, no focal motor deficits and normal sensation to monofilament Cranial nerves: Yes Equal, round and reactive pupils present Cognition (Neuro): normal cognition Gait exam (Neuro): Normal gait present Motor exam (neuro): 5/5 motor strength present throughout Extrem General: Yes no joint enlargement, Yes no pedal edema, Yes no calf tenderness and Yes normal gait Psych Appearance: grossly normal and well kempt Mental Status: mental status grossly normal Speech and movement: Normal speech and movement present Affect: normal affect Attitude: cooperative Thought process: Normal thought process present Results Reviewed Results Reviewed: RUN: 06/28/23 1136 PAGE 1 [facility] [address] [place] [id number] Police Commanding Officer: Reinier Cheatham M.D. Specimen Inquiry Name: Chloe Fisher Age/Sex: 68/F : 1955 Unit#: [id number] Attend Dr: Arlene Dawkins MD Re06/24/23 Status: DEP [facility] Disch: SPEC : [id number] SHANE: 06/24/23 STATUS: COMP REQ : [id number] RECD: 06/24/23-[address]: Arlene Dawkins MD COMP: 06/24/23 ENTERED: 06/24/[address]: ORDERED: Met Prof Fast, AST, ALT, Lipid Panel, Vitamin D 25-OH, Free T4, TSH Test Result Flag Reference Sodium 141 135-145 mmol/L Potassium 3.9 3.3-5.1 mmol/L CL 105 96-108 mmol/L CO2 27 22-29 mmol/L Gap 13 12-20 BUN 10 9-16 mg/dL Creat 0.63 0.5-1.4 mg/dL EGFR > 60 NOTE: For -[place] individuals, multiply the result by 1.210. Chronic Kidney Disease: Estimated GFR < 60 mL/min/1.73m2 Severe Kidney Disease: Estimated GFR < 15 mL/min/1.73m2 FBS 119 H 60-99 mg/dL A fasting glucose from 100-125 mg/dl is considered impaired (pre-diabetes). CA 9.6 8.4-10.2 mg/dL AST (GOT) 21 5-31 U/L ALT (GPT) 28 0-31 U/L Triglyceride 225 H <150 mg/dL Desirable Triglyceride: less than 150 mg/dL Borderline High Triglyceride 150-199 mg/dL High Triglyceride: 200-499 mg/dL Very High Triglyceride: greater than or equal to 5OO mg/dL Cholesterol 117 <200 mg/dL Desirable Cholesterol: less than 200 mg/dL Borderline High Cholesterol: 200-239 mg/dL High Cholesterol: greater than 239 mg/dL LDL Calculated 34 <100 mg/dL Desirable LDL: less than 100 mg/dL Near Optimal/Above Optimal LDL: 110-129 mg/dL Borderline High LDL: 130-159 mg/dL High LDL: 160-189 mg/dL Very High LDL: greater than or equal to 190 mg/dL HDL 38 L >40 mg/dL Desirable HDL: greater than 40 mg/dL Note: This HDL assay may give artificially low results in patients with liver disease. Vit D 25-OH Tot 36.4 >30 ng/mL Health Based Reference Values* < 20 ng/mL Deficient 20-30 ng/mL Insufficient > 30 ng/mL Sufficient *Jen PIEDRA. N Engl J Med. 2007;357:266-280 Care must be taken in interpreting Vitamin D results from different laboratories and methodologies. Published data demonstrated that results from patients undergoing hemodialysis may show a negative bias when tested with various automated 25-OH vitamin D assays when compared to LC-MS/MS. When testing samples from patients whose predominant form of Vitamin D is Vitamin D2, such as patients receiving Vitamin D2 supplementation, results that are subtherapeutic should be confirmed with another method such as LC-MS/MS. Free T4 1.16 0.71-1.85 ng/dL TSH 3rd Gen. 1.47 0.32-4.0 uIU/mL TSH 3rd Generation ([facility]) Laboratory Tests 06/24/23 06/24/23 08:09 08:12 Estimat Average Glucose 148 Hemoglobin A1c % 6.8 H Urine Creatinine 77.18 Urine Microalbumin 6.0 Microalb/Creat Ratio 7.7 Assessment and Plan Assessment & Plan (1) Type 2 diabetes mellitus without complication, with no history of insulin use: Code(s): E11.9 - Type 2 diabetes mellitus without complications Plan: Hemoglobin A1c 6.8, slightly higher than last check . Continued on sitagliptin, metformin ER, continue checking blood sugar at home once a day and keep a log of the readings. Up-to-date with his diabetes retinopathy screening, sees Dr. Elizondo. Reinforced importance of following recommended diet and getting regular exercise. Will check hemoglobin A1c in 3 months (2) Dyslipidemia: Code(s): E78.5 - Hyperlipidemia, unspecified Plan: Reviewed recent fasting lipid profile with patient with levels within normal limits . Continue with ezetimibe and rosuvastatin , in addition to adherence to low-cholesterol diet and regular exercise, at least 30 minutes 3 to 4 times a week. Advised patient to make healthy food choices, eat more fruits, vegetables, whole grains, wild caught fish and low-fat dairy. Limit amount of meat and fried or fatty food products, as well as processed foods and fast foods. Follow-up scheduled with repeat fasting lipid panel in 3 months. (3) Acquired hypothyroidism: Code(s): E03.9 - Hypothyroidism, unspecified Plan: Thyroid levels are within normal limits, continued on levothyroxine 112 mcg daily in a.m. an hour before breakfast. Repeat thyroid levels again in 3 month Orders: Orders Hemoglobin A1c 10/16/23 E03.9 - Hypothyroidism, unspecified, E11.9 - Type 2 diabetes mellitus without complications, E78.5 - Hyperlipidemia, unspecified Alanine Aminotransferase 10/16/23 E03.9 - Hypothyroidism, unspecified, E11.9 - Type 2 diabetes mellitus without complications, E78.5 - Hyperlipidemia, unspecified Aspartate Amino Transferase 10/16/23 E03.9 - Hypothyroidism, unspecified, E11.9 - Type 2 diabetes mellitus without complications, E78.5 - Hyperlipidemia, unspecified Lipid Panel 10/16/23 E03.9 - Hypothyroidism, unspecified, E11.9 - Type 2 diabetes mellitus without complications, E78.5 - Hyperlipidemia, unspecified Thyroid Stimulating Hormone 10/16/23 E03.9 - Hypothyroidism, unspecified, E11.9 - Type 2 diabetes mellitus without complications, E78.5 - Hyperlipidemia, unspecified Free T4 (Free Thyroxine) 10/16/23 E03.9 - Hypothyroidism, unspecified, E11.9 - Type 2 diabetes mellitus without complications, E78.5 - Hyperlipidemia, unspecified Coding Level of Care Code Est Pt Level 4 (82055) Diagnoses Type 2 diabetes mellitus without complication, with no history of insulin use E11. Dyslipidemia E78.5 Acquired hypothyroidism E0.
== END 2023-06-28 11:51 | disposition home or self-care (01) ==
PROVIDERS: PCP Internal Medicine; Visit Provider Internal Medicine
DX: E11.69 Type 2 diabetes mellitus with other specified complication (principal); E78.5 Hyperlipidemia, unspecified; E03.9 Hypothyroidism, unspecified
CPT/HCPCS: 99214

== ENCOUNTER 2023-10-26 10:09 | Outpatient (REF) | payer MEDICARE, SELFPAY ==
[2023-10-26 13:54] LABS: Estimated Average Glucose 146 mg/dL; Hemoglobin A1c % 6.7 % (<6.0)
[2023-10-26 14:07] LABS: Alanine Aminotransferase 66 U/L (0-31); Aspartate Amino Transferase 38 U/L (5-31); Cholesterol 139 mg/dL (<200); HDL Cholesterol 41 mg/dL (>40); LDL Cholesterol Calculated 55 mg/dL (<100); Triglycerides 217 mg/dL (<150)
[2023-10-26 14:27] LABS: Free T4 (Free Thyroxine) 1.11 ng/dL (0.71-1.85); Thyroid Stimulating Hormone 2.37 uIU/mL (0.32-4.0)
== END 2023-10-26 10:10 | disposition home or self-care (01) ==
LOC: HO.HMGCLDS 10:09
PROVIDERS: PCP Internal Medicine; Visit Provider Internal Medicine
DX: E03.9 Hypothyroidism, unspecified (principal); E11.9 Type 2 diabetes mellitus without complications; E78.5 Hyperlipidemia, unspecified
CPT/HCPCS: 36415; 80061; 83036; 84439; 84443; 84450; 84460

== ENCOUNTER 2023-11-01 11:22 | Outpatient (AMB) | payer MEDICARE, SELFPAY ==
--- NOTE | 2023-11-01 11:44 | A.OFFPC_ITS ---
Vital Signs 11/01/23 11:51 Height 5 ft 4 in Weight 184 lb BMI 31.6 BP 124/76 Blood Pressure Location Lt brachial Position Sitting Pulse 64 Pulse Source Pulse Oximeter Pulse Oximetry (%) 96 Oxygen Delivery Method Room Air Intake Visit Reasons: 4M F/U DM lipids fasting labs Intake Note: Pt is here today for 4 months follow up visit on labs. Allergies canagliflozin [Invokana] Adverse Reaction (Unknown, Verified 11/01/23 12:27) yeast infection metformin Adverse Reaction (Unknown, Verified 11/01/23 12:27) diarrhea Medication List - Last Reconciled 11/01/23 by Arlene Dawkins MD aspirin (Adult Aspirin Regimen) 81 mg PO DAILY ezetimibe 10 mg PO DAILY lancets Test blood sugar once a day levothyroxine 112 mcg PO DAILY losartan 25 mg PO DAILY metformin ER 500 mg PO DAILY metoprolol succinate ER 50 mg PO DAILY omeprazole 20 mg PO DAILY OneTouch Ultra Test (blood sugar diagnostic) Test blood sugar once a day NS OneTouch Ultra2 Meter (blood-glucose meter) As directed NS rosuvastatin 40 mg PO DAILY Tobacco use date assessed: 11/01/23 Fall risk assessment: No Falls in past year Last assessed Fall Risk: 11/01/23 Dental Screening Dental Screen Date: 11/01/23 Did you have a dental visit in the last 12 months?: Yes Did you have a dental problem in the last 6 months where you did not have access to dental care?: No Was dental information given to patient?: Patient has dentist HPI 4M F/U DM lipids fasting labs HPI Details 68-year-old lady with history of hyperte nsion, hyperlipidemia and diabetes mellitus, here today for follow-up. She has been compliant with taking her medications, has been feeling well with no complaints at present time. [facility] Medical History (Updated 11/01/23 @ 12:34 by Arlene Dawkins MD) History of adenomatous polyp of colon Encounter for annual wellness visit (AWV) in Medicare patient Vitamin D deficiency Fracture of left tibia and fibula Diabetic retinopathy screening Menopause Vitamin D deficiency Tubular adenoma of colon Fatty liver Chronic GERD Uterine fibroid Acquired hypothyroidism History of radioactive iodine thyroid ablation Graves' disease in remission CAD (coronary artery disease) Essential hypertension Dyslipidemia Type 2 diabetes mellitus without complication, with no history of insulin use Surgical History History of heart artery stent Tibia/fibula fracture History of tubal ligation Family History Father Pancreatic cancer Mother Alzheimer's disease Dementia Breast cancer Social History Housing: House Alcohol intake: current Alcohol intake frequency: 0-2 drinks per day Patient Tobacco Use Status: Former Tobacco user Tobacco use type: Cigarette Years Smoked: 30 years e-Cigarette/Vaping Use: Never Used service: No Current occupational status: retired Cognitive needs: No Hearing needs: No Vision needs: Yes Questionnaire PHQ-9 Over the last 2 weeks, how often have you been bothered by any of the following problems? 1. Little interest or pleasure in doing things: not at all 2. Feeling down, depressed, or hopeless: not at all 3. Trouble falling or staying asleep, or sleeping too much: not at all 4. Feeling tired or having little energy: not at all 5. Poor appetite or overeating: not at all 6. Feeling bad about yourself - or that you are a failure or have let yourself or your family down: not at all 7. Trouble concentrating on things, such as reading the newspaper or watching television: not at all 8. Moving or speaking so slowly that other people could have noticed. Or the opposite - being so fidgety or restless that you have been moving around a lot more than usual: not at all 9. Thoughts that you would be better off or of hurting yourself in some way: not at all Total score: 0 Depression Screening Interpretation: Negative Depression Screening Done: Yes 08097 - PHQ-9 Billing: Yes Source: Developed by Drs. Evan Johnson, Sushila Juarez, Stan Blount and colleagues, with an educational pawan from [employer]. Thrive Questionnaire Date Thrive assessed: 11/01/23 I am a: Patient What is your living situation today?: I have a steady place to live Within the past 12 months, did the food you bought not last and you didn't have the money to get more?: Never true Within the past 12 months, did you worry whether your food would run out before you got money to buy more?: Never true Do you have trouble paying for medicines?: I choose not to answer this question Do you have trouble getting transportation to medical appointments?: No Do you have trouble paying your heating and electricity bill?: No Do you have trouble taking care of your child, family member or friend?: No Do you have trouble with day-to-day activities such as bathing, preparing meals, shopping, managing finances, etc.?: No Are you currently unemployed and looking for a job?: No Are you interested in more education?: No Please select the resources that you would like help with: None Currently or been in a relationship where the following occur: No concerns reported THRIVE Score: 0 AUDIT C Alcohol Use Questionnaire (AUDIT-C) 1. How often do you have a drink containing alcohol?: Monthly or less 2. How many drinks containing alcohol do you have on a typical day when you are drinking?: 1 or 2 3. How often do you have six or more drinks on one occasion?: Never Total Score: 1 BRIANNA-7 AMB Questionnaire BRIANNA-7 Date BRIANNA - 7 assessed: 11/01/23 Feeling nervous, anxious, or on edge: 0 = Not at all Not being able to stop or control worryin = Not at all Worrying too much about different things: 0 = Not at all Trouble relaxin = Not at all Being so restless that it is hard to sit still: 0 = Not at all Becoming easily annoyed or irritable: 0 = Not at all Feeling afraid as if something awful might happen: 0 = Not at all Total BRIANNA-7 score (0-4 normal; 5-9 mild; 10-14 moderate; 15-21 severe): 0 Source: Developed by Drs. Evan Johnson, Sushila Juarez, Stan Blount and colleagues, with an educational pawan from [employer]. BRIANNA-7 Assessment Billing BRIANNA-7 Assessment Tool: BRIANNA-7 Assessment 33973 Review of Systems Const Denies body aches, Denies fatigue, Denies fever(s), Denies headache(s) and Denies weakness Eyes Details: Dr. Elizondo, appointment upcoming November 2023 Denies change in vision ENT Denies dizziness, Denies headache(s), Denies nasal congestion, Denies nasal discharge and Denies sore throat Card Denies chest pain, Denies lightheadedness, Denies palpitations and Denies dyspnea Resp Denies chest congestion, Denies cough, Denies dyspnea and Denies wheezing GI Denies abdominal pain, Denies change in bowel habits and Denies heartburn Denies urinary frequency, Denies dysuria and Denies urinary urgency Musc Denies back pain, Denies myalgias, Denies joint swelling and Denies muscle weak ness Skin/Breast Denies lesions and Denies rash Neuro Denies dizziness, Denies headache(s) and Denies weakness Psych Reports no additional complaints Endo Denies fatigue, Denies polydipsia, Denies polyuria and Denies palpitations [place]/Lymph Denies easy bruising Aller/Immun Denies seasonal rhinorrhea and Denies wheezing Physical exam (Primary Care) Vital Signs: Last Vital Signs Pulse 64 11/01/23 11:51 BP 124/76 11/01/23 11:51 Pulse Ox 96 11/01/23 11:51 Oxygen Delivery Method Room Air 11/01/23 11:51 BMI result Body Mass Index 31.6 Tobacco/Smoking Status: Tobacco use Status Tobacco use date assessed 11/01/23 11/01/23 11:56 Patient Tobacco Use Status Former Tobacco user 11/01/23 11:44 Tobacco use type Cigarette 11/01/23 11:44 e-Cigarette/Vaping Use Never Used 11/01/23 11:44 PHQ-9: PHQ-9 Score PHQ-9: Total score 0 11/01/23 12:28 Depression Screening Interpretation: Negative Thrive Assessment: Date of Thrive Assessment Date Thrive assessed 11/01/23 11/01/23 11:44 Currently or been in a relationship where the following occur: No concerns reported Const General: no acute distress Nutritional Appearance: obese Orientation/consciousness: patient oriented x3 HENMT Ears: external ears normal General nose exam: Normal external nose present Mouth: oropharynx normal and moist mucous membranes Eyes General: appearance normal, both eyes and all related structures Conjunctivae: conjunctivae normal Pupils: Equal, round and reactive pupils present EOM: EOMs intact bilaterally Neck Neck: Yes full ROM, Yes no lymphadenopathy and Yes supple Resp Effort & Inspection: normal respiratory effort and able to speak in complete sentences Auscultation: clear to auscultation bilaterally Cardio Rate: regular rate Rhythm: regular rhythm Heart sounds: S1 normal heart sound present and S2 normal heart sound present GI Inspection: Yes normal to inspection Palpation (GI): Soft to palpation, nontender and no masses Auscultation: normal bowel sounds Neuro General: patient oriented x3, gait normal, tone normal, moves all extremities, Normal light touch and pain sensation and normal sensation to monofilament Cranial nerves: Yes Equal, round and reactive pupils present Cognition (Neuro): normal cognition Gait exam (Neuro): Normal gait present Motor exam (neuro): 5/5 motor strength present throughout Extrem General: Yes no joint enlargement, Yes no pedal edema, Yes no calf tenderness and Yes normal gait Results Reviewed Results Reviewed: Laboratory Tests 10/26/23 10:41 Estimat Average Glucose 146 Hemoglobin A1c % 6.7 H Name: Chloe Fisher Age/Sex: 68/F : 1955 Unit#: [id number] Attend Dr: Arlene Dawkins MD Re10/26/23 Status: DEP [facility] Disch: SPEC : [id number] SHANE: 10/26/23 STATUS: COMP REQ : [id number] RECD: 10/26/[address]: Arlene Dawkins MD COMP: 10/26/23 ENTERED: 10/26/23-[address]: ORDERED: AST, ALT, Lipid Panel, Free T4, TSH Test Result Flag Reference AST (GOT) 38 H 5-31 U/L ALT (GPT) 66 H 0-31 U/L Triglyceride 217 H <150 mg/dL Desirable Triglyceride: less than 150 mg/dL Borderline High Triglyceride 150-199 mg/dL High Triglyceride: 200-499 mg/dL Very High Triglyceride: greater than or equal to 5OO mg/dL Cholesterol 139 <200 mg/dL Desirable Cholesterol: less than 200 mg/dL Borderline High Cholesterol: 200-239 mg/dL High Cholesterol: greater than 239 mg/dL LDL Calculated 55 <100 mg/dL Desirable LDL: less than 100 mg/dL Near Optimal/Above Optimal LDL: 110-129 mg/dL Borderline High LDL: 130-159 mg/dL High LDL: 160-189 mg/dL Very High LDL: greater than or equal to 190 mg/dL HDL 41 >40 mg/dL Desirable HDL: greater than 40 mg/dL Note: This HDL assay may give artificially low results in patients with liver disease. Free T4 1.11 0.71-1.85 ng/dL TSH 3rd Gen. 2.37 0.32-4.0 uIU/mL TSH 3rd Generation ([facility]) Assessment and Plan Assessment & Plan (1) Essential hypertension: Code(s): I10 - Essential (primary) hypertension Plan: Blood pressure stable and controlled, continued on metoprolol succinate ER 50 mg daily and losartan 25 mg in the morning (2) Dyslipidemia: Code(s): E78.5 - Hyperlipidemia, unspecified Plan: Reviewed recent fasting lipid profile with patient with levels within normal limits except for elevated triglycerides . Continue ezetimibe 10 mg daily and rosuvastatin 40 mg daily , in addition to adherence to low-cholesterol diet and regular exercise, at least 30 minutes 3 to 4 times a week. Advised patient to make healthy food choices, eat more fruits, vegetables, whole grains, wild caught fish and low-fat dairy. Limit amount of meat and fried or fatty food products, as well as processed foods and fast foods. Follow-up scheduled with repeat fasting lipid panel in 5 months. (3) Type 2 diabetes mellitus without complication, with no history of insulin use: Code(s): E11.9 - Type 2 diabetes mellitus without complications Plan: Diabetes mellitus stable controlled, with latest hemoglobin A1c at 6.7%. Continue metformin ER 500 mg daily and continue monitor blood sugar as directed. (4) Acquired hypothyroidism: Code(s): E03.9 - Hypothyroidism, unspecified Plan: Continue levothyroxine 112 mcg daily in a.m. (5) History of adenomatous polyp of colon: Code(s): Z86.010 - Personal history of colonic polyps Plan: Referred to [facility] for her repeat colonoscopy screening, over Plan Referred to GI Clinic for her repeat colonoscopy Orders: Orders Lipid Panel 03/23/24 E03.9 - Hypothyroidism, unspecified, E11.9 - Type 2 diabetes mellitus without complications, E78.5 - Hyperlipidemia, unspecified, I10 - Essential (primary) hypertension, I25.10 - Atherosclerotic heart disease of [place] coronary artery without angina pectoris, K76.0 - Fatty (change of) liver, not elsewhere classified Microalbumin, Random (w Creat) 03/23/24 E03.9 - Hypothyroidism, unspecified, E11.9 - Type 2 diabetes mellitus without complications, E78.5 - Hyperlipidemia, unspecified, I10 - Essential (primary) hypertension, I25.10 - Atherosclerotic heart disease of [place] coronary artery without angina pectoris, K76.0 - Fatty (change of) liver, not elsewhere classified Alanine Aminotransferase 03/23/24 E03.9 - Hypothyroidism, unspecified, E11.9 - Type 2 diabetes mellitus without complications, E78.5 - Hyperlipidemia, unspecified, I10 - Essential (primary) hypertension, I25.10 - Atherosclerotic heart disease of [place] coronary artery without angina pectoris, K76.0 - Fatty (change of) liver, not elsewhere classified Basic Metabolic Panel Fasting 03/23/24 E03.9 - Hypothyroidism, unspecified, E11.9 - Type 2 diabetes mellitus without complications, E78.5 - Hyperlipidemia, unspecified, I10 - Essential (primary) hypertension, I25.10 - Atherosclerotic heart disease of [place] coronary artery without angina pectoris, K76.0 - Fatty (change of) liver, not elsewhere classified Vitamin D 25-OH Total 03/23/24 E03.9 - Hypothyroidism, unspecified, E11.9 - Type 2 diabetes mellitus without complications, E78.5 - Hyperlipidemia, unspecified, I10 - Essential (primary) hypertension, I25.10 - Atherosclerotic heart disease of [place] coronary artery without angina pectoris, K76.0 - Fatty (change of) liver, not elsewhere classified Thyroid Stimulating Hormone 03/23/24 E03.9 - Hypothyroidism, unspecified, E11.9 - Type 2 diabetes mellitus without complications, E78.5 - Hyperlipidemia, unspecified, I10 - Essential (primary) hypertension, I25.10 - Atherosclerotic heart disease of [place] coronary artery without angina pectoris, K76.0 - Fatty (change of) liver, not elsewhere classified Hemoglobin A1c 03/23/24 E03.9 - Hypothyroidism, unspecified, E11.9 - Type 2 diabetes mellitus without complications, E78.5 - Hyperlipidemia, unspecified, I10 - Essential (primary) hypertension, I25.10 - Atherosclerotic heart disease of [place] coronary artery without angina pectoris, K76.0 - Fatty (change of) liver, not elsewhere classified Aspartate Amino Transferase 03/23/24 E03.9 - Hypothyroidism, unspecified, E11.9 - Type 2 diabetes mellitus without complications, E78.5 - Hyperlipidemia, unspecified, I10 - Essential (primary) hypertension, I25.10 - Atherosclerotic heart disease of [place] coronary artery without angina pectoris, K76.0 - Fatty (change of) liver, not elsewhere classified Free T4 (Free Thyroxine) 03/23/24 E03.9 - Hypothyroidism, unspecified, E11.9 - Type 2 diabetes mellitus without complications, E78.5 - Hyperlipidemia, unspecified, I10 - Essential (primary) hypertension, I25.10 - Atherosclerotic heart disease of [place] coronary artery without angina pectoris, K76.0 - Fatty (change of) liver, not elsewhere classified Referrals Gastroenterology Referral Z86.010 - Personal history of colonic polyps Coding Level of Care Code Est Pt Level 4 (74976) Complex EM visit Add On G2211 Diagnoses Essential hypertension I10 Dyslipidemia E78.5 Type 2 diabetes mellitus without complication, with no history of insulin use E11.9 Acquired hypothyroidism E03.9 History of adenomatous polyp of colon Z86.010 Additional Codes BRIANNA-7 Assessment Billing - BRIANNA-7 Assessment Tool: BRIANNA-7 Assessment [id number] ([id number])
[2023-11-01 11:51] VITALS: BP 124/76; PULSE 64; O2SAT 96; BMI 31.6
== END 2023-11-01 13:07 | disposition home or self-care (01) ==
PROVIDERS: PCP Internal Medicine; Visit Provider Internal Medicine
DX: I10 Essential (primary) hypertension (principal); E78.5 Hyperlipidemia, unspecified; E11.69 Type 2 diabetes mellitus with other specified complication; E03.9 Hypothyroidism, unspecified; Z86.010 Personal history of colon polyps
CPT/HCPCS: 99214; G2211

== ENCOUNTER 2024-02-26 07:50 | Outpatient (AMB) | payer MEDICARE, SELFPAY ==
[2024-02-26 08:08] VITALS: BP 154/86; PULSE 66; O2SAT 97; BMI 32.4
--- NOTE | 2024-02-26 08:08 | MHC.OFFVIS ---
Vital Signs 02/26/24 08:08 Height 5 ft 4 in Weight 188 lb 11.451 oz BMI 32.4 BP 154/86 H Blood Pressure Location Rt brachial Position Sitting Pulse 66 Pulse Source Pulse Oximeter Pulse Oximetry (%) 97 Oxygen Delivery Method Room Air Intake Visit Reasons: Colonoscopy Screening Intake Note: NEW PATIENT Reason; scheduled in office colo scrn Prior hx of colo/egd? 2016 Dr. Cunningham Concerns/Questions? Pt is doing well with omeprazole but would like to find a way to be off of the medication. Pt is also taking metformin despite the intolerance. Pt had been taking januvia but couldn't afford it anymore. Allergies canagliflozin [Invokana] Adverse Reaction (Unknown, Verified 02/26/24 08:08) yeast infection metformin Adverse Reaction (Unknown, Verified 02/26/24 08:08) diarrhea HPI HPI Colonoscopy Screening: Details: 68 year old? female with past medical history of diabetes, GERD, hypothyroidism, CAD, hypertension, dyslipidemia is here today for pre colonoscopy screening.? Patient was sent to us by her PCP.? Last colonoscopy in 2015, tubular adenoma found.? Patient denies any gastrointestinal symptoms in the past or at present.? Denies any personal or family history of gastrointestinal disease or CRC.? Patient reports acid reflux and takes omeprazole with good effect. Denies history of difficulty with sedation or anesthesia in the past.? Negative for history of sleep apnea.? Denies any history of cardiac, renal, pulmonary, or hepatic disease.?? No history of infectious? diseases like hepatitis A, B, C, HIV or tuberculosis.? Patient is on low-dose aspirin [facility] Medical History (Updated 02/26/24 @ 08:37 by MARIA C Gruber) Transaminitis History of adenomatous polyp of colon Encounter for annual wellness visit (AWV) in Medicare patient Vitamin D deficiency Fracture of left tibia and fibula Diabetic retinopathy screening Menopause Vitamin D deficiency Tubular adenoma of colon Fatty liver Chronic GERD Uterine fibroid Acquired hypothyroidism History of radioactive iodine thyroid ablation Graves' disease in remission CAD (coronary artery disease) Essential hypertension Dyslipidemia Type 2 diabetes mellitus without complication, with no history of insulin use Surgical History History of heart artery stent Tibia/fibula fracture History of tubal ligation Family History Father Pancreatic cancer Mother Alzheimer's disease Dementia Breast cancer Social History Housing: House Alcohol intake: current Alcohol intake frequency: 0-2 drinks per day Patient Tobacco Use Status: Former Tobacco user Tobacco use type: Cigarette Years Smoked: 30 years e-Cigarette/Vaping Use: Never Used service: No Current occupational status: retired Cognitive needs: No Hearing needs: No Vision needs: Yes Review of Systems Const Denies weight gain and Denies weight loss ENT Reports no additional complaints, Denies dysphagia and Denies odynophagia Card Reports no additional complaints Resp Reports no additional complaints GI Denies abdominal pain, Denies belching, Denies melena, Denies bloating, Denies change in bowel habits, Denies dysphagia, Denies excessive flatus, Denies dyspepsia, Reports heartburn, Denies diarrhea, Reports loose stools (When taking metformin), Denies nausea, Denies odynophagia and Denies vomiting Reports no additional complaints Musc Reports no additional complaints Neuro Reports no additional complaints Psych Reports no additional complaints Endo Reports no additional complaints Physical Exam Const General: healthy appearing and no acute distress Nutritional Appearance: well nourished and obese Orientation/consciousness: patient oriented x3 Resp Effort & Inspection: normal respiratory effort, able to speak in complete sentences, no tracheal deviation and symmetric chest movement Auscultation: clear to auscultation bilaterally Cardio Rate: regular rate GI Inspection: Yes normal to inspection, No distended and Yes obesity Palpation (GI): Soft to palpation, not firm, nontender and No hepatosplenomegaly present Auscultation: normal bowel sounds General: Yes no CVA tenderness Back/Spine/Pelvis Back: no CVA tenderness Skin General skin exam: elasticity normal, turgor normal and dry skin Neuro General: patient oriented x3 Psych Appearance: grossly normal Mental Status: mental status grossly normal Assessment & Plan Assessment & Plan (1) History of adenomatous polyp of colon: Code(s): Z86.010 - Personal history of colon polyps Category: Medical (2) Fatty liver: Code(s): K76.0 - Fatty (change of) liver, not elsewhere classified Category: Medical (3) Chronic GERD: Code(s): K21.9 - Gastro-esophageal reflux disease without esophagitis Category: Medical (4) Screen for colon cancer: Code(s): Z12.11 - Encounter for screening for malignant neoplasm of colon (5) Transaminitis: Code(s): R74.01 - Elevation of levels of liver transaminase levels Category: Medical Plan Patient denies any cardiac or respiratory symptoms.? History of reflux on omeprazole for a long time. Patient was encouraged to go for endoscopy, she will call her insurance to see if it will be paid for. Patient reports postprandial diarrhea specially when she began to take metformin. Patient admits to eating ice cream every night before bedtime. Liver enzymes elevated back in October. Patient was encouraged to eat low fat low-salt low carb diet increase protein intake. Avoid eating before bedtime. Denies any issues with anesthesia in the past.? Denies any history of sleep apnea.? No history infectious diseases in the past or present.? Patient is on low-dose aspirin.? No family or personal history of colon cancer. Personal history of tubular adenoma.? Patient denies melena, hematochezia, unintentional weight loss or ribbon like stools.? Discussed at length the pre-procedure,? prep, diet & medications as well as what to expect prior, during and after the procedure.?? Stressed the importance of good bowel prep.? Recommended the use of Vaseline or Calmoseptine OTC & baby wipes with bowel movements to promote comfort.? ?Patient verbalizes understanding and agrees to plan of care.? She was given the opportunity to ask questions and all questions answered.? We will see her after the procedure.? Medications: New bisacodyl (Dulcolax (bisacodyl)) take 4 tabs at noon the day before your colonoscopy 20 mg (4 x 5 mg) PO ONCE 1 day 4 tabs 0RF Z12.11 - Encounter for screening for malignant neoplasm of colon polyethylene glycol 3350 (Miralax) As directed by gastroenterology department at [facility] 238 grams PO ONCE 238 grams 0RF Z12.11 - Encounter for screening for malignant neoplasm of colon hydrocortisone 2.5% (Proctosol HC) 1 appl AR BID-QID PRN 30 grams 2RF hemorrhoids K64.9 - Unspecified hemorrhoids Coding Level of Care Code New Pt Level 3 (57979) Diagnoses History of adenomatous polyp of colon Z86.010 Fatty liver K76.0 Chronic GERD K21.9 Screen for colon cancer Z12.11 Transaminitis R74.01 Time Spent (min) 40 Comment 30 minutes spent with patient and additional 10 minutes spent reviewing her records
== END 2024-02-26 10:29 | disposition home or self-care (01) ==
PROVIDERS: PCP Internal Medicine; Visit Provider Nurse Practitioner Family
DX: Z01.818 Encounter for other preprocedural examination (principal); Z12.11 Encounter for screening for malignant neoplasm of colon; Z86.0101 Personal history of adenomatous and serrated colon polyps; K21.9 Gastro-esophageal reflux disease without esophagitis
CPT/HCPCS: 99024

== ENCOUNTER → 2024-02-26 07:50 | Outpatient (BNVA) | payer MEDICARE, SELFPAY | PROVIDERS: PCP Internal Medicine; Visit Provider Nurse Practitioner Family | DX: Z12.11 Encounter for screening for malignant neoplasm of colon (principal); K76.0 Fatty (change of) liver, not elsewhere classified; K21.9 Gastro-esophageal reflux disease without esophagitis; R74.01 Elevation of levels of liver transaminase levels; Z86.0101 Personal history of adenomatous and serrated colon polyps | CPT/HCPCS: 99212 ==

== ENCOUNTER 2024-05-06 11:54 | Outpatient (REF) | payer MEDICARE, SELFPAY | END 2024-05-06 11:55 | disposition home or self-care (01) | LOC: HO.MAMMO 11:54 | PROVIDERS: PCP Internal Medicine; Visit Provider Internal Medicine | DX: Z12.31 Encounter for screening mammogram for malignant neoplasm of breast (principal) | CPT/HCPCS: 77063; 77067 ==

== ENCOUNTER → 2024-05-06 12:00 | Outpatient (BNV) | payer MEDICARE, SELFPAY | PROVIDERS: PCP Internal Medicine; Visit Provider Internal Medicine | DX: Z12.31 Encounter for screening mammogram for malignant neoplasm of breast (principal) | CPT/HCPCS: 77063; 77067 ==

== ENCOUNTER 2024-07-18 10:02 | Day surgery (SDC) | payer MEDICARE, SELFPAY ==
[2024-07-16 14:59] VITALS: BMI 32.3
--- NOTE | 2024-07-17 11:53 | HO.ANESPROP2 ---
HPI - Anesthesia Eval Consult details Narrative: 69yo F for Upper Endoscopy and Colonoscopy CAD s/p stent (prior to 2019) [facility] Active Problems Active Problems: All Active Problems Transaminitis (Acute) History of adenomatous polyp of colon (Acute) Tubular adenoma of colon (Acute) Fatty liver (Acute) Chronic GERD (Acute) Uterine fibroid (Acute) Acquired hypothyroidism (Acute) History of radioactive iodine thyroid ablation (Acute) Graves' disease in remission (Acute) CAD (coronary artery disease) (Acute) History of heart artery stent (Acute) Essential hypertension (Acute) Dyslipidemia (Acute) Type 2 diabetes mellitus without complication, with no history of insulin use (Acute) Past Medical History Medical History (Updated 02/26/24 @ 08:37 by MAE Gruber) Transaminitis History of adenomatous polyp of colon Encounter for annual wellness visit (AWV) in Medicare patient Vitamin D deficiency Fracture of left tibia and fibula Diabetic retinopathy screening Menopause Vitamin D deficiency Tubular adenoma of colon Fatty liver Chronic GERD Uterine fibroid Acquired hypothyroidism History of radioactive iodine thyroid ablation Graves' disease in remission CAD (coronary artery disease) Essential hypertension Dyslipidemia Type 2 diabetes mellitus without complication, with no history of insulin use Family History Family History Father Pancreatic cancer Mother Alzheimer's disease Dementia Breast cancer Surgical History Surgical History History of heart artery stent Tibia/fibula fracture History of tubal ligation Social History Social History Housing: House Alcohol intake: current Alcohol intake frequency: 0-2 drinks per day Patient Tobacco Use Status: Former Tobacco user Tobacco use type: Cigarette Years Smoked: 30 years e-Cigarette/Vaping Use: Never Used service: No Current occupational status: retired Cognitive needs: No Hearing needs: No Vision needs: Yes Meds Allergies Allergy/AdvReac Type Severity Reaction Status Date / Time canagliflozin [Invokana] AdvReac Unknown yeast Verified 02/26/24 08:08 infection metformin AdvReac Unknown diarrhea Verified 02/26/24 08:08 Home Medications ?Medication ?Instructions ?Recorded ?Confirmed ?Last Taken ?Type aspirin 81 mg tablet,delayed 81 mg PO DAILY 01/28/20 12/09/21 Unknown History release (Adult Aspirin Regimen) Exam Height,Weight and Vital Signs: Height 5 ft 4 in Weight 85.275 kg Assessment and Plan Assessment Anesthesia Assessment: Chart Reviewed
[2024-07-18 10:54] VITALS: BP 136/84; PULSE 92; RESP 17; TEMP 37.1; O2SAT 96
--- NOTE | 2024-07-18 10:58 | P.HPSUR_ITS ---
Pre-Procedural Eval Section A - 24 Hr Update-Section A only Date of Service: 07/18/24 Section B - Complete if H&P > 30 days Chief Complaint: screening,reflux Details of Present Illness: Transaminitis History of adenomatous polyp of colon Encounter for annual wellness visit (AWV) in Medicare patient Vitamin D deficiency Fracture of left tibia and fibula Diabetic retinopathy screening Menopause Vitamin D deficiency Tubular adenoma of colon Fatty liver Chronic GERD Uterine fibroid Acquired hypothyroidism History of radioactive iodine thyroid ablation Graves' disease in remission CAD (coronary artery disease) Essential hypertension Dyslipidemia Type 2 diabetes mellitus without complication, with no history of insulin use Surgical History History of heart artery stent Tibia/fibula fracture History of tubal ligation Allergies: Allergies Allergy/AdvReac Type Severity Reaction Status Date / Time canagliflozin [Invokana] AdvReac Unknown yeast Verified 02/26/24 08:08 infection Review of Systems Review of Systems Comment: Ten point ROS negative Exam Exam Comment: Gen appear: No acute distress HEENT: no icterus Chest: No overt resp distress Abd: soft, nontender, nondistended Psych: Stable affect, answering questions appropriately Neuro: A/Ox3 noted to move all extremities spontaneously Ext: no peripheral edema Plan Diagnosis/Plan: Unchanged I have reviewed the history and physical and performed a pertinent physical examination on my patient. No changes have occurred unless specified. Time Spent With Patient Time: Total time managing care of this patient today ____ minutes.
[2024-07-18] MEDS: Lactated Ringers 1,000 ML 100 ML IVCONT (11:02)
[2024-07-18 11:03] LABS: Glucose, Whole Blood 145 mg/dL (60-115)
--- NOTE | 2024-07-18 11:24 | P.CONAN_ITS ---
[facility] Active Problems Active Problems: All Active Problems Transaminitis (Acute) History of adenomatous polyp of colon (Acute) Tubular adenoma of colon (Acute) Fatty liver (Acute) Chronic GERD (Acute) Uterine fibroid (Acute) Acquired hypothyroidism (Acute) History of radioactive iodine thyroid ablation (Acute) Graves' disease in remission (Acute) CAD (coronary artery disease) (Acute) History of heart artery stent (Acute) Essential hypertension (Acute) Dyslipidemia (Acute) Type 2 diabetes mellitus without complication, with no history of insulin use (Acute) Past Medical History Medical History Transaminitis History of adenomatous polyp of colon Encounter for annual wellness visit (AWV) in Medicare patient Vitamin D deficiency Fracture of left tibia and fibula Diabetic retinopathy screening Menopause Vitamin D deficiency Tubular adenoma of colon Fatty liver Chronic GERD Uterine fibroid Acquired hypothyroidism History of radioactive iodine thyroid ablation Graves' disease in remission CAD (coronary artery disease) Essential hypertension Dyslipidemia Type 2 diabetes mellitus without complication, with no history of insulin use Functional capacity: independent ambulation Patient : No Family History Family History Father Pancreatic cancer Mother Alzheimer's disease Dementia Breast cancer Family history of problems with anesthesia: No Surgical History Surgical History History of heart artery stent Tibia/fibula fracture History of tubal ligation History of Problems with Anesthesia: No Social History Social History Housing: House Alcohol intake: current Alcohol intake frequency: 0-2 drinks per day Patient Tobacco Use Status: Former Tobacco user Tobacco use type: Cigarette Years Smoked: 30 years e-Cigarette/Vaping Use: Never Used Use of substances other than those prescribed or required for medical reasons: No Advance Directives: No Advance Directives Information Provided: Yes service: No Current occupational status: retired Cognitive needs: No Hearing needs: No Vision needs: Yes Meds Allergies Allergy/AdvReac Type Severity Reaction Status Date / Time canagliflozin [Invokana] AdvReac Unknown yeast Verified 02/26/24 08:08 infection Active Medications: Current Medications Lactated Ringer's (Lr) 1,000 mls @ 100 mls/hr IVCONT .Q10H MIGUEL ÁNGEL Last Admin: 07/18/24 11:02 Dose: 100 mls/hr Home Medications ?Medication ?Instructions ?Recorded ?Confirmed ?Last Taken ?Type aspirin 81 mg tablet,delayed 81 mg PO DAILY 01/28/20 12/09/21 Unknown History release (Adult Aspirin Regimen) Exam Height,Weight and Vital Signs: Height 5 ft 4 in Weight 85.275 kg Last Vital Signs Temp 98.7 F 07/18/24 10:54 Pulse 92 07/18/24 10:54 Resp 17 07/18/24 10:54 BP 136/84 07/18/24 10:54 Pulse Ox 96 07/18/24 10:54 O2 Del Method Room Air 07/18/24 10:54 Pertinent Lab Results Pertinent Lab Results: Laboratory Tests 07/18/24 11:00 POC Glucose 145 H Airway Mallampati Class: III TM Dist: >3cm Neck ROM: Full Heart: RRR Lungs: CTA Assessment and Plan Assessment Anesthesia Assessment: Anesthesia Plan Discussed Final Anesthetic Review Family History of Problems with Anesthesia: No History of Problems with Anesthesia: No NPO: Yes ASA Class: III Final Preanesthetic Review: Meds/Allgs Chart Reviewed, Consent Obtained/Reviewed and Anes Risks/Benef Reviewed Patient Risk: Intermediate Procedure Risk: Low Anesthetic Plan Anesthetic Plan: MAC: Disposition: Standard PACU
--- NOTE | 2024-07-18 12:37 | P.OPN-COLO_ITS ---
Colonoscopy Operative Note Operative Note Date of Service: 07/18/24 Narrative: Procedure: Upper endoscopy and colonoscopy Indication: GERD, hx of polyps Endoscopist: Camila Betts MD Anesthesia Provider: Dr Jarrod Pulido Anesthesia type: MAC Instrument: [id number] and [id number] EGD Procedure:?? The procedure, indications, preparation and potential complications were reviewed with the patient, who indicated understanding and gave written informed consent to proceed. The endoscope was introduced through the mouth, and advanced to the 2nd part of the duodenum. The mucosa was carefully examined on slow withdrawal of the endoscope. The patient tolerated the procedure well. There were no immediate complications.? EGD Findings:? * Esophagus:? Normal esophageal mucosa was noted. The Z-line was at 32 cm. A large paraesophageal hernia was noted with the diaphragmatic pinch at 40 cm. Cold forceps biopsies were taken from GE junction to rule out Baugh's esophagus. * Stomach:? Normal gastric mucosa. Retroflexion was performed in the cardia that showed Hill grade IV hiatal hernia. Random cold forceps biopsies were taken from the stomach. * Duodenum:? Erythema and edema of duodenal bulb. Cold forceps biopsies were taken from the duodenal bulb and 2nd portion of the duodenum to rule out celiac sprue. Colonoscopy Procedure:? The patient was then turned for the colonoscopy. A digital rectal exam was performed which was abnormal for.? A distal attachment cap was affixed to the tip of the scope and the colonoscope was then inserted through the anus and advanced through the colon and advanced to the cecum at 75 cm and terminal ileum.? Appendiceal orifice and ileocecal valve were identified. Mucosa was carefully examined under high definition white light as the instrument was slowly withdrawn in a retrograde panoramic fashion. Retroflexion was performed in rectum. The procedure was not difficult. The quality of the prep was BBPS: 2+3+2 = adequate Withdrawal time 24 minutes Limitations: No limitations Findings: Mucosa: Normal colon and terminal ileum mucosa. Protruding lesions: * 5 sessile polyps of size 2-10 mm in ascending colon. Cold snare polypectomy was performed. The polyps were completely removed and retrieved. * 4 sessile polyps of size 4-12 mm noted in transverse colon. Cold snare polypectomy was performed. The polyps were completely removed and retrieved. * 1 pedunculated polyp of size 15 mm noted in transverse colon. Hot snare polypectomy was performed. The polyp was completely removed and retrieved. * 2 sessile polyps of size 1-5 mm in descending colon. Cold snare polypectomy was performed. The polyps were completely removed and retrieved. * 2 sessile polyp of size 2-5 mm noted in sigmoid colon. Cold snare polypectomy was performed. The polyps were completely removed and retrieved. * Medium internal hemorrhoids without stigmata of recent bleeding. Impression: 1. Normal esophagus (biopsy) 2. Paraesophageal hernia 3. Normal stomach (biopsy) 4. Duodenitis (biopsy) 5. Normal colon mucosa 6. Total of 14 polyps removed 7. Diverticulosis 8. Internal and external hemorrhoids Recommendations:?? * Follow-up path results * Avoid NSAIDs and smoking * Cont PPI * Consider outpatient barium swallow for hiatal hernia evaluation * Repeat colonoscopy in 1 year if 10 or more polyps are adenoma.
[2024-07-18 12:45] VITALS: BP 122/74; PULSE 77; RESP 16; TEMP 36.6; O2SAT 95
[2024-07-18 13:02] VITALS: BP 133/74; PULSE 76; RESP 16; TEMP 36.6; O2SAT 95
--- NOTE | 2024-07-18 13:05 | HO.POSTANES ---
Post Anesthesia Evaluation Post Anesthesia Evaluation Date of Service: 07/18/24 Vital Signs: Vital Signs Temp Pulse Resp BP Pulse Ox O2 Del Method 07/18/24 12:45 97.8 F 77 16 122/74 95 Room Air 07/18/24 10:54 98.7 F 92 17 136/84 96 Room Air Anesthesia: Monitored Mental Status: Awake Pain Control: Satisfactory Nausea/Vomiting: None Hydration: Adequate Anesthesia-Related Issues: No Anes. Related Issues
== END 2024-07-18 13:49 | disposition home or self-care (01) ==
PROVIDERS: PCP Internal Medicine; Visit Provider Internal Medicine
PROC: (CPT 45385; principal; 2024-07-18 12:10)
DX: Z12.11 Encounter for screening for malignant neoplasm of colon (principal); D12.2 Benign neoplasm of ascending colon; D12.3 Benign neoplasm of transverse colon; D12.4 Benign neoplasm of descending colon; K57.30 Diverticulosis of large intestine without perforation or abscess without bleeding; K64.8 Other hemorrhoids; K64.4 Residual hemorrhoidal skin tags; Z86.0101 Personal history of adenomatous and serrated colon polyps; K21.9 Gastro-esophageal reflux disease without esophagitis; K29.80 Duodenitis without bleeding; K44.9 Diaphragmatic hernia without obstruction or gangrene; E11.9 Type 2 diabetes mellitus without complications; I10 Essential (primary) hypertension; E78.5 Hyperlipidemia, unspecified; E55.9 Vitamin D deficiency, unspecified; K76.0 Fatty (change of) liver, not elsewhere classified; R74.01 Elevation of levels of liver transaminase levels; Z92.3 Personal history of irradiation; Z87.891 Personal history of nicotine dependence; Z79.82 Long term (current) use of aspirin; Z79.02 Long term (current) use of antithrombotics/antiplatelets; Z79.84 Long term (current) use of oral hypoglycemic drugs; Z79.899 Other long term (current) drug therapy
CPT/HCPCS: 45385; 43239; 82947; 88305; 88313; 88342; J2003; J2704

== ENCOUNTER → 2024-07-18 10:02 | Outpatient (BNV) | payer MEDICARE, SELFPAY | PROVIDERS: PCP Internal Medicine; Visit Provider Internal Medicine | DX: Z12.11 Encounter for screening for malignant neoplasm of colon (principal); K21.9 Gastro-esophageal reflux disease without esophagitis; K29.80 Duodenitis without bleeding; D12.2 Benign neoplasm of ascending colon; D12.3 Benign neoplasm of transverse colon; D12.4 Benign neoplasm of descending colon; D12.5 Benign neoplasm of sigmoid colon; K64.9 Unspecified hemorrhoids | CPT/HCPCS: 43239; 45385 ==

== ENCOUNTER 2024-10-19 09:36 | Outpatient (REF) | payer MEDICARE, SELFPAY ==
[2024-10-19 11:17] LABS: Hemoglobin A1C 191.6327 umol/L; Total Hemoglobin (HGBA1C) 3769.1440 umol/L
[2024-10-19 11:33] LABS: Alanine Aminotransferase 26 U/L (0-31); Anion Gap 14 (12-20); Aspartate Amino Transferase 31 U/L (5-31); Blood Urea Nitrogen 12 mg/dL (9-16); Calcium 9.1 mg/dL (8.4-10.2); Carbon Dioxide 24 mmol/L (22-29); Chloride 106 mmol/L (96-108); Cholesterol 124 mg/dL (<200); Estimated Glomerular Filt Rate > 60; HDL Cholesterol 42 mg/dL (>40); Potassium 4.1 mmol/L (3.3-5.1); Sodium 140 mmol/L (135-145); Triglycerides 148 mg/dL (<150)
[2024-10-19 11:34] LABS: Microalbum/Creatinine Ratio Ur 19.8 ug/mg cr (<30)
[2024-10-19 11:38] LABS: Free T4 (Free Thyroxine) 1.29 ng/dL (0.71-1.85); Thyroid Stimulating Hormone 1.72 uIU/mL (0.32-4.0)
== END 2024-10-19 09:37 | disposition home or self-care (01) ==
LOC: HO.HMGCLDS 09:36
PROVIDERS: PCP Internal Medicine; Visit Provider Internal Medicine
DX: I10 Essential (primary) hypertension (principal); E03.9 Hypothyroidism, unspecified; E78.5 Hyperlipidemia, unspecified; E11.9 Type 2 diabetes mellitus without complications; I25.10 Atherosclerotic heart disease of native coronary artery without angina pectoris; K76.0 Fatty (change of) liver, not elsewhere classified
CPT/HCPCS: 36415; 80048; 80061; 82043; 82306; 82570; 83036; 84439; 84443; 84450; 84460

== ENCOUNTER 2024-10-23 08:21 | Outpatient (AMB) | payer MEDICARE, SELFPAY ==
[2024-10-23 09:01] VITALS: BP 130/80; PULSE 63; RESP 16; TEMP 36.9; O2SAT 97; BMI 31.2
--- NOTE | 2024-10-23 09:01 | MHC.PC.OV ---
Vital Signs 10/23/24 09:01 Height 5 ft 4 in Weight 182 lb BMI 31.2 BP 130/80 Blood Pressure Location Rt brachial Position Sitting Respiration 16 Pulse 63 Pulse Source Pulse Oximeter Temp 98.4 F Temp Source Oral Pulse Oximetry (%) 97 Oxygen Delivery Method Room Air Intake Visit Reasons: Annual PE - see comments Intake Note: Pt is here today for her PE: Last mammogram 05/06/24, bone denisty scan 10/08/19, colonoscopy 07/18/24 Allergies canagliflozin (Invokana) Adverse Reaction (Unknown, Verified 10/27/24 23:31) yeast infection Medication List - Last Reconciled 10/23/24 by Arlene Dawkins MD aspirin (Adult Aspirin Regimen) 81 mg PO DAILY ezetimibe 10 mg PO DAILY lancets Test blood sugar once a day levothyroxine 112 mcg PO DAILY losartan 25 mg PO DAILY metoprolol succinate ER 50 mg PO DAILY omeprazole 20 mg PO DAILY OneTouch Ultra Test (blood sugar diagnostic) Test blood sugar once a day NS OneTouch Ultra2 Meter (blood-glucose meter) As directed NS rosuvastatin 40 mg PO DAILY Tobacco use date assessed: 10/23/24 Fall risk assessment: No Falls in past year Last assessed Fall Risk: 10/23/24 Dental Screening Dental Screen Date: 10/23/24 Did you have a dental visit in the last 12 months?: No Did you have a dental problem in the last 6 months where you did not have access to dental care?: No Was dental information given to patient?: Patient declined HPI Annual PE - see comments HPI Details 69 year old? female with past medical history of diabetes mellitus , GERD, hypothyroidism, CAD, hypertension, and dyslipidemia is here today for her physical examination. [facility] Medical History Transaminitis History of adenomatous polyp of colon Encounter for annual wellness visit (AWV) in Medicare patient Vitamin D deficiency Fracture of left tibia and fibula Diabetic retinopathy screening Menopause Vitamin D deficiency Tubular adenoma of colon Fatty liver Chronic GERD Uterine fibroid Acquired hypothyroidism History of radioactive iodine thyroid ablation Graves' disease in remission CAD (coronary artery disease) Essential hypertension Dyslipidemia Type 2 diabetes mellitus without complication, with no history of insulin use Surgical History History of heart artery stent Tibia/fibula fracture History of tubal ligation Family History Father Pancreatic cancer Mother Alzheimer's disease Dementia Breast cancer Social History Housing: House Alcohol intake: current Alcohol intake frequency: 0-2 drinks per day Patient Tobacco Use Status: Former Tobacco user Tobacco use type: Cigarette Years Smoked: 30 years e-Cigarette/Vaping Use: Never Used service: No Current occupational status: retired Cognitive needs: No Hearing needs: No Vision needs: Yes Questionnaire PHQ-9 Over the last 2 weeks, how often have you been bothered by any of the following problems? 1. Little interest or pleasure in doing things: not at all 2. Feeling down, depressed, or hopeless: not at all 3. Trouble falling or staying asleep, or sleeping too much: not at all 4. Feeling tired or having little energy: not at all 5. Poor appetite or overeating: not at all 6. Feeling bad about yourself - or that you are a failure or have let yourself or your family down: not at all 7. Trouble concentrating on things, such as reading the newspaper or watching television: not at all 8. Moving or speaking so slowly that other people could have noticed. Or the opposite - being so fidgety or restless that you have been moving around a lot more than usual: not at all 9. Thoughts that you would be better off or of hurting yourself in some way: not at all Total score: 0 Depression Screening Interpretation: Negative Depression Screening Done: Yes 08544 - PHQ-9 Billing: Yes Source: Developed by Drs. Evan Johnson, Sushila Juarez, Stan Blount and colleagues, with an educational pawan from [employer]. Thrive Questionnaire Date Thrive assessed: 10/23/24 I am a: Patient What is your living situation today?: I have a steady place to live Within the past 12 months, did the food you bought not last and you didn't have the money to get more?: Never true Within the past 12 months, did you worry whether your food would run out before you got money to buy more?: Never true Do you have trouble paying for medicines?: No Do you have trouble getting transportation to medical appointments?: No Do you have trouble paying your heating and electricity bill?: No Do you have trouble taking care of your child, family member or friend?: No Do you have trouble with day-to-day activities such as bathing, preparing meals, shopping, managing finances, etc.?: No Are you currently unemployed and looking for a job?: No Are you interested in more education?: No Please select the resources that you would like help with: None Currently or been in a relationship where the following occur: No concerns reported THRIVE Score: 0 AUDIT C Alcohol Use Questionnaire (AUDIT-C) 1. How often do you have a drink containing alcohol?: Monthly or less 2. How many drinks containing alcohol do you have on a typical day when you are drinking?: 1 or 2 3. How often do you have six or more drinks on one occasion?: Never Total Score: 1 Score Reviewed/Action Taken: Yes BRIANNA-7 AMB Questionnaire BRIANNA-7 Date BRIANNA - 7 assessed: 10/23/24 Feeling nervous, anxious, or on edge: 0 = Not at all Not being able to stop or control worryin = Not at all Worrying too much about different things: 0 = Not at all Trouble relaxin = Not at all Being so restless that it is hard to sit still: 0 = Not at all Becoming easily annoyed or irritable: 0 = Not at all Feeling afraid as if something awful might happen: 0 = Not at all Total BRIANNA-7 score (0-4 normal; 5-9 mild; 10-14 moderate; 15-21 severe): 0 Source: Developed by Drs. Evan Johnson, Sushila Juarez, Stan Blount and colleagues, with an educational pawan from [employer]. BRIANNA-7 Assessment Billing BRIANNA-7 Assessment Tool: BRIANNA-7 Assessment 38661 Review of Systems Const Denies body aches, Denies fatigue, Denies fever(s), Denies headache(s) and Denies weakness Eyes Details: Dr. Elizondo, appointment upcoming November 2023 Denies change in vision ENT Denies dizziness, Denies headache(s) and Denies nasal discharge Card Denies chest pain, Denies lightheadedness, Denies palpitations and Denies dyspnea Resp Denies chest congestion, Denies cough, Denies dyspnea and Denies wheezing GI Denies abdominal pain, Denies change in bowel habits and Denies heartburn Denies urinary frequency, Denies dysuria and Denies urinary urgency Musc Denies back pain, Denies myalgias, Denies joint swelling and Denies muscle weakness Skin/Breast Denies lesions and Denies rash Neuro Denies dizziness, Denies headache(s) and Denies weakness Psych Reports no additional complaints Endo Denies fatigue, Denies polydipsia, Denies polyuria and Denies palpitations [place]/Lymph Denies easy bruising Aller/Immun Denies seasonal rhinorrhea and Denies wheezing Physical exam (Primary Care) Vital Signs: Last Vital Signs Temp 98.4 F 10/23/24 09:01 Pulse 63 10/23/24 09:01 Resp 16 10/23/24 09:01 BP 130/80 10/23/24 09:01 Pulse Ox 97 10/23/24 09:01 Oxygen Delivery Method Room Air 10/23/24 09:01 BMI result Body Mass Index 31.2 Tobacco/Smoking Status: Tobacco use Status Tobacco use date assessed 10/23/24 10/23/24 09:04 Patient Tobacco Use Status Former Tobacco user 10/23/24 09:04 Tobacco use type Cigarette 10/23/24 09:04 e-Cigarette/Vaping Use Never Used 10/23/24 09:04 PHQ-9: PHQ-9 Score PHQ-9: Total score 0 10/23/24 09:37 Depression Screening Interpretation: Negative Thrive Assessment: Date of Thrive Assessment Date Thrive assessed 10/23/24 10/23/24 09:04 Currently or been in a relationship where the following occur: No concerns reported Advance Care Planning discussion: Completed/Scanned Date of discussion: 10/23/24 Who was present: Patient Forms completed: Health Care Proxy and MOLST Time spent: 16-45 minutes Actual minutes spent: 10 Const General: no acute distress Nutritional Appearance: obese Orientation/consciousness: patient oriented x3 HENMT Ears: external ears normal General nose exam: Normal external nose present Mouth: oropharynx normal and moist mucous membranes Eyes General: appearance normal, both eyes and all related structures Conjunctivae: conjunctivae normal Pupils: Equal, round and reactive pupils present EOM: EOMs intact bilaterally Neck Neck: Yes full ROM, Yes no lymphadenopathy and Yes supple Resp Effort & Inspection: normal respiratory effort and able to speak in complete sentences Auscultation: clear to auscultation bilaterally Cardio Rate: regular rate Rhythm: regular rhythm Heart sounds: S1 normal heart sound present and S2 normal heart sound present GI Inspection: Yes normal to inspection Palpation (GI): Soft to palpation, nontender and no masses Auscultation: normal bowel sounds General: Yes no CVA tenderness Back/Spine/Pelvis Back: no CVA tenderness and No back tenderness Skin General skin exam: no rashes or lesions noted Neuro General: patient oriented x3, gait normal, tone normal, moves all extremities, Normal light touch and pain sensation and normal sensation to monofilament Cranial nerves: Yes Equal, round and reactive pupils present Cognition (Neuro): normal cognition Gait exam (Neuro): Normal gait present Motor exam (neuro): 5/5 motor strength present throughout Extrem General: Yes no joint enlargement, Yes no pedal edema, Yes no calf tenderness and Yes normal gait Psych Appearance: grossly normal and well kempt Mental Status: mental status grossly normal Speech and movement: Normal speech and movement present Affect: normal affect Results Reviewed Results Reviewed: Laboratory Tests 10/19/24 10/19/24 09:42 09:50 Estimat Average Glucose 148 Hemoglobin A1c % 6.8 H Urine Creatinine 141.15 Urine Microalbumin 28.0 Microalb/Creat Ratio 19.8 Name: Chloe Fisher Age/Sex: 69/F : 1955 Unit#: [id number] Attend Dr: Arlene Dawkins MD Re10/19/24 Status: DEP [facility] Disch: SPEC : [id number] SHANE: 10/19/24 STATUS: COMP REQ : [id number] RECD: 10/19/[address]: Arlene Dawkins MD COMP: 10/19/24 ENTERED: 10/19/[address]: ORDERED: Met Prof Fast, AST, ALT, Lipid Panel, Vitamin D 25-OH, Free T4, TSH Test Result Flag Reference Sodium 140 135-145 mmol/L Potassium 4.1 3.3-5.1 mmol/L CL 106 96-108 mmol/L CO2 24 22-29 mmol/L Gap 14 12-20 BUN 12 9-16 mg/dL Creat 0.62 0.5-1.4 mg/dL eGFR > 60 Chronic Kidney Disease: Estimated GFR < 60 mL/min/1.73m2 Severe Kidney Disease: Estimated GFR < 15 mL/min/1.73m2 FBS 129 H 60-99 mg/dL A fasting glucose of 126 mg/dl or greater on more than one occasion is considered diagnostic of diabetes. CA 9.1 8.4-10.2 mg/dL AST (GOT) 31 5-31 U/L ALT (GPT) 26 0-31 U/L Triglyceride 148 <150 mg/dL Desirable Triglyceride: less than 150 mg/dL Borderline High Triglyceride 150-199 mg/dL High Triglyceride: 200-499 mg/dL Very High Triglyceride: greater than or equal to 5OO mg/dL Cholesterol 124 <200 mg/dL Desirable Cholesterol: less than 200 mg/dL Borderline High Cholesterol: 200-239 mg/dL High Cholesterol: greater than 239 mg/dL LDL Calculated 53 <100 mg/dL Desirable LDL: less than 100 mg/dL Near Optimal/Above Optimal LDL: 110-129 mg/dL Borderline High LDL: 130-159 mg/dL High LDL: 160-189 mg/dL Very High LDL: greater than or equal to 190 mg/dL HDL 42 >40 mg/dL Desirable HDL: greater than 40 mg/dL Note: This HDL assay may give artificially low results in patients with liver disease. Vitamin D 25-OH 39.6 >30 ng/mL Health Based Reference Values* < 20 ng/mL Deficient 20-30 ng/mL Insufficient > 30 ng/mL Sufficient *Jen PIEDRA. N Engl J Med. 2007;357:266-280 There is no well-established upper level of normal vitamin D levels. Some laboratories use 50 ng/mL as an upper limit of normal. However, toxicity is patient-dependent and may occur at any level. Careful correlation with the patient's presentation is necessary and, if there is concern for vitamin D toxicity, treatment should be considered irrespective of the serum level. Care must be taken in interpreting Vitamin D results from different laboratories and methodologies. Published data demonstrated that results from patients undergoing hemodialysis may show a negative bias when tested with various automated 25-OH vitamin D assays when compared to LC-MS/MS. When testing samples from patients whose predominant form of Vitamin D is Vitamin D2, such as patients receiving Vitamin D2 supplementation, results that are subtherapeutic should be confirmed with another method such as LC-MS/MS. Free T4 1.29 0.71-1.85 ng/dL TSH 3rd Gen. 1.72 0.32-4.0 uIU/mL Coding Level of Care Code Est Pt Prev Care >65y(01976) Diagnoses Annual visit for general adult medical examination with abnormal findings Z00.01 Type 2 diabetes mellitus without complication, with no history of insulin use E11.9 History of heart artery stent Z95.5 CAD (coronary artery disease) I25.10 Dyslipidemia E78.5 Essential hypertension I10 Acquired hypothyroidism E03.9 Chronic GERD K21.9 History of adenomatous polyp of colon Z86.010 Advance directive discussed with patient Z71.89 Additional Codes BRIANNA-7 Assessment Billing - BRIANNA-7 Assessment Tool: BRIANNA-7 Assessment 64846 ([id number]) PHQ-9 - 91589 - PHQ-9 Billing: Yes ([id number]) Vital Signs *Quality* - Advance Care Planning discussion: Completed/Scanned ([id number]) Vital Signs *Quality* - Time spent: 16-45 minutes ([id number]) Assessment & Plan Assessment & Plan (1) Annual visit for general adult medical examination with abnormal findings: Code(s): Z00.01 - Encounter for general adult medical examination with abnormal findings Plan: Reviewed recent fasting lab results with patient. Recommended dental visit every 6 months and yearly eye exam for diabetic retinopathy screening. Take adequate calcium in diet and vitamin-D 3 at 2000 IU per cap once a day, in addition to weight-bearing exercises to help maintain good muscle tone and weight control. Instructed to do self-breast exam, and continue to get yearly mammogram, bone density scan ordered today.. Colonoscopy screening due again in 2025. Reminded to get yearly flu vaccine, up-to-date with further vaccines (2) Type 2 diabetes mellitus without complication, with no history of insulin use: Code(s): E11.9 - Type 2 diabetes mellitus without complications Category: Medical Plan: Recent lab results reviewed with patient, with sugar and hemoglobin A1c higher than last check with hemoglobin A1c at 6.8%. Stopped taking metformin as she developed severe GI upset with nausea and diarrhea. Started on Januvia 100 mg taken once daily, continue to check fasting blood sugar at home, maintain log and bring to next appointment for review. Reinforced diabetic diet and regular exercise with patient. Counseled regarding importance of yearly diabetes retinopathy screening. Patient advised to inspect feet daily, for any signs of injury, callus or infection. Compliance with diet and regular exercise again stressed. Blood pressure goal is less than 130/80, goal LDL is less than 100 and goal hemoglobin A1c is less than 7% follow-up appointment made in--3-months, after fasting labs done. (3) History of heart artery stent: Code(s): Z95.5 - Presence of coronary angioplasty implant and graft Category: Surgical Plan: Currently on aspirin 81 mg daily, stressed importance of getting diabetes mellitus, hypertension lipids well controlled. Cardiology referral ordered for follow-up, has not been seen for several years now (4) CAD (coronary artery disease): Code(s): I25.10 - Atherosclerotic heart disease of [place] coronary artery without angina pectoris Category: Medical Plan: Currently on aspirin 81 mg daily, stressed importance of getting diabetes mellitus, hypertension lipids well controlled. Cardiology referral ordered for follow-up, has not been seen for several years now (5) Dyslipidemia: Code(s): E78.5 - Hyperlipidemia, unspecified Category: Medical Plan: Reviewed recent fasting lipid profile with patient with levels within normal limits . Continue ezetimibe 10 mg daily together with rosuvastatin 40 mg once a day , in addition to adherence to low-cholesterol diet and regular exercise, at least 30 minutes 3 to 4 times a week. Advised patient to make healthy food choices, eat more fruits, vegetables, whole grains, wild caught fish and low-fat dairy. Limit amount of meat and fried or fatty food products, as well as processed foods and fast foods. Follow-up scheduled with repeat fasting lipid panel in 3 months. (6) Essential hypertension: Code(s): I10 - Essential (primary) hypertension Category: Medical Plan: Blood pressure at goal of less than 130/80. Continue with losartan and metoprolol succinate at the same dose Reinforced importance of following a low sodium diet, getting regular exercise, and lowering stress levels. (7) Acquired hypothyroidism: Code(s): E03.9 - Hypothyroidism, unspecified Category: Medical Plan: Latest thyroid levels are within normal limits, continued on levothyroxine 112 mcg daily (8) Chronic GERD: Code(s): K21.9 - Gastro-esophageal reflux disease without esophagitis Category: Medical Plan: Currently on omeprazole 20 mg daily (9) History of adenomatous polyp of colon: Code(s): Z86.010 - Personal history of colon polyps Category: Medical Plan: Due for repeat colonoscopy in 2025 (10) Advance directive discussed with patient: Code(s): Z71.89 - Other specified counseling Plan: Initiated the conversation about Advanced Directives. Advanced Directives help patients prepare for current and future decisions about their medical treatment and place of care. Discussed with patient that it is a process where a patients current condition and prognosis are reviewed, their wishes for information regarding their illness are elicited, and likely medical dilemmas are presented and options discussed. Healthcare proxy form completed today. The form can be amended as needed, reviewed yearly and make changes as needed Orders: Orders Hemoglobin A1c 01/20/25 E03.9 - Hypothyroidism, unspecified, E11.9 - Type 2 diabetes mellitus without complications, E78.5 - Hyperlipidemia, unspecified, I10 - Essential (primary) hypertension, I25.10 - Atherosclerotic heart disease of [place] coronary artery without angina pectoris, K76.0 - Fatty (change of) liver, not elsewhere classified, Z00.01 - Encounter for general adult medical examination with abnormal findings, Z71.89 - Other specified counseling, Z86.010 - Personal history of colon polyps, Z95.5 - Presence of coronary angioplasty implant and graft Aspartate Amino Transferase 01/20/25 E03.9 - Hypothyroidism, unspecified, E11.9 - Type 2 diabetes mellitus without complications, E78.5 - Hyperlipidemia, unspecified, I10 - Essential (primary) hypertension, I25.10 - Atherosclerotic heart disease of [place] coronary artery without angina pectoris, K76.0 - Fatty (change of) liver, not elsewhere classified, Z00.01 - Encounter for general adult medical examination with abnormal findings, Z71.89 - Other specified counseling, Z86.010 - Personal history of colon polyps, Z95.5 - Presence of coronary angioplasty implant and graft Basic Metabolic Panel Fasting 01/20/25 E03.9 - Hypothyroidism, unspecified, E11.9 - Type 2 diabetes mellitus without complications, E78.5 - Hyperlipidemia, unspecified, I10 - Essential (primary) hypertension, I25.10 - Atherosclerotic heart disease of [place] coronary artery without angina pectoris, K76.0 - Fatty (change of) liver, not elsewhere classified, Z00.01 - Encounter for general adult medical examination with abnormal findings, Z71.89 - Other specified counseling, Z86.010 - Personal history of colon polyps, Z95.5 - Presence of coronary angioplasty implant and graft XR DEXA axial skeleton 10/23/24 Z78.0 - Asymptomatic menopausal state Alanine Aminotransferase 01/20/25 E03.9 - Hypothyroidism, unspecified, E11.9 - Type 2 diabetes mellitus without complications, E78.5 - Hyperlipidemia, unspecified, I10 - Essential (primary) hypertension, I25.10 - Atherosclerotic heart disease of [place] coronary artery without angina pectoris, K76.0 - Fatty (change of) liver, not elsewhere classified, Z00.01 - Encounter for general adult medical examination with abnormal findings, Z71.89 - Other specified counseling, Z86.010 - Personal history of colon polyps, Z95.5 - Presence of coronary angioplasty implant and graft Lipid Panel 01/20/25 E03.9 - Hypothyroidism, unspecified, E11.9 - Type 2 diabetes mellitus without complications, E78.5 - Hyperlipidemia, unspecified, I10 - Essential (primary) hypertension, I25.10 - Atherosclerotic heart disease of [place] coronary artery without angina pectoris, K76.0 - Fatty (change of) liver, not elsewhere classified, Z00.01 - Encounter for general adult medical examination with abnormal findings, Z71.89 - Other specified counseling, Z86.010 - Personal history of colon polyps, Z95.5 - Presence of coronary angioplasty implant and graft Vitamin D 25-OH Total 01/20/25 E03.9 - Hypothyroidism, unspecified, E11.9 - Type 2 diabetes mellitus without complications, E78.5 - Hyperlipidemia, unspecified, I10 - Essential (primary) hypertension, I25.10 - Atherosclerotic heart disease of [place] coronary artery without angina pectoris, K76.0 - Fatty (change of) liver, not elsewhere classified, Z00.01 - Encounter for general adult medical examination with abnormal findings, Z71.89 - Other specified counseling, Z86.010 - Personal history of colon polyps, Z95.5 - Presence of coronary angioplasty implant and graft Thyroid Stimulating Hormone 01/20/25 E03.9 - Hypothyroidism, unspecified, E11.9 - Type 2 diabetes mellitus without complications, E78.5 - Hyperlipidemia, unspecified, I10 - Essential (primary) hypertension, I25.10 - Atherosclerotic heart disease of [place] coronary artery without angina pectoris, K76.0 - Fatty (change of) liver, not elsewhere classified, Z00.01 - Encounter for general adult medical examination with abnormal findings, Z71.89 - Other specified counseling, Z86.010 - Personal history of colon polyps, Z95.5 - Presence of coronary angioplasty implant and graft Free T4 (Free Thyroxine) 01/20/25 E03.9 - Hypothyroidism, unspecified, E11.9 - Type 2 diabetes mellitus without complications, E78.5 - Hyperlipidemia, unspecified, I10 - Essential (primary) hypertension, I25.10 - Atherosclerotic heart disease of [place] coronary artery without angina pectoris, K76.0 - Fatty (change of) liver, not elsewhere classified, Z00.01 - Encounter for general adult medical examination with abnormal findings, Z71.89 - Other specified counseling, Z86.010 - Personal history of colon polyps, Z95.5 - Presence of coronary angioplasty implant and graft Referrals Cardiology Referral I25.10 - Atherosclerotic heart disease of [place] coronary artery without angina pectoris, Z95.5 - Presence of coronary angioplasty implant and graft Medications: New Januvia (sitagliptin phosphate) 100 mg PO DAILY 90 tabs 4RF NS E11.9 - Type 2 diabetes mellitus without complications
== END 2024-10-23 09:57 | disposition home or self-care (01) ==
LOC: HO.HMCC 08:22
PROVIDERS: PCP Internal Medicine; Visit Provider Internal Medicine
DX: Z00.01 Encounter for general adult medical examination with abnormal findings (principal); E11.9 Type 2 diabetes mellitus without complications; Z95.5 Presence of coronary angioplasty implant and graft; I25.10 Atherosclerotic heart disease of native coronary artery without angina pectoris; E78.5 Hyperlipidemia, unspecified; I10 Essential (primary) hypertension; E03.9 Hypothyroidism, unspecified; K21.9 Gastro-esophageal reflux disease without esophagitis; Z86.0100 Personal history of colon polyps, unspecified; Z71.89 Other specified counseling; Z00.00 Encounter for general adult medical examination without abnormal findings

== ENCOUNTER → 2024-10-23 08:21 | Outpatient (BNVA) | payer MEDICARE, SELFPAY | PROVIDERS: PCP Internal Medicine; Visit Provider Internal Medicine | DX: Z00.01 Encounter for general adult medical examination with abnormal findings (principal); E11.9 Type 2 diabetes mellitus without complications; I25.10 Atherosclerotic heart disease of native coronary artery without angina pectoris; E78.5 Hyperlipidemia, unspecified; I10 Essential (primary) hypertension; E03.9 Hypothyroidism, unspecified; K21.9 Gastro-esophageal reflux disease without esophagitis; Z86.0100 Personal history of colon polyps, unspecified; Z71.89 Other specified counseling; Z95.5 Presence of coronary angioplasty implant and graft | CPT/HCPCS: 96127; 99397; 99497 ==

== ENCOUNTER 2024-12-05 09:07 | Outpatient (AMB) | payer MEDICARE, SELFPAY ==
--- NOTE | 2024-12-05 09:19 | A.OFFVIS_ITS ---
Vital Signs 12/05/24 09:23 Height 5 ft 4 in Weight 183 lb BMI 31.4 BP 132/58 L Blood Pressure Location Rt brachial Position Sitting Pulse 68 Pulse Source Pulse Oximeter Pulse Oximetry (%) 96 Oxygen Delivery Method Room Air Intake Visit Reasons: FUV. Discuss gene testing - Polyposis. Intake Note: Est pt for mgmt of GERD and eval of polyposis. CC; Pt denies any GI changes or new concerns at this time. 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 Discuss gene testing - Polyposis.: Details: LAST VISIT: History of adenomatous polyp of colon Fatty liver Chronic GERD Screen for colon cancer Transaminitis Plan Patient denies any cardiac or respiratory symptoms.? History of reflux on omeprazole for a long time. Patient was encouraged to go for endoscopy, she will call her insurance to see if it will be paid for. Patient reports postprandial diarrhea specially when she began to take metformin. Patient admits to eating ice cream every night before bedtime. Liver enzymes elevated back in October. Patient was encouraged to eat low fat low-salt low carb diet increase protein intake. Avoid eating before bedtime. Denies any issues with anesthesia in the past.? Denies any history of sleep apnea.? No history infectious diseases in the past or present.? Patient is on low-dose aspirin.? No family or personal history of colon cancer. Personal history of tubular adenoma.? Patient denies melena, hematochezia, unintentional weight loss or ribbon like stools.? Discussed at length the pre-procedure,? prep, diet & medications as well as what to expect prior, during and after the procedure.?? Stressed the importance of good bowel prep.? Recommended the use of Vaseline or Calmoseptine OTC & baby wipes with bowel movements to promote comfort.? ?Patient verbalizes understanding and agrees to plan of care.? She was given the opportunity to ask questions and all questions answered.? We will see her after the procedure.? New bisacodyl (Dulcolax (bisacodyl)) take 4 tabs at noon the day before your colonoscopy 20 mg (4 x 5 mg) PO ONCE 1 day 4 tabs 0RF Z12.11 polyethylene glycol 3350 (Miralax) As directed by gastroenterology department at [facility] 238 grams PO ONCE 238 grams 0RF Z12.11 hydrocortisone 2.5% (Proctosol HC) 1 appl ID [id number] PRN 30 grams 2RF hemorrhoids K64.9 UPPER ENDOSCOPY AND COLONOSCOPY: EGD Findings:? * Esophagus:? Normal esophageal mucosa was noted. The Z-line was at 32 cm. A large paraesophageal hernia was noted with the diaphragmatic pinch at 40 cm. Cold forceps biopsies were taken from GE junction to rule out Baugh's esophagus. * Stomach:? Normal gastric mucosa. Retroflexion was performed in the cardia that showed Hill grade IV hiatal hernia. Random cold forceps biopsies were taken from the stomach. * Duodenum:? Erythema and edema of duodenal bulb. Cold forceps biopsies were taken from the duodenal bulb and 2nd portion of the duodenum to rule out celiac sprue. Colonoscopy Procedure:? The patient was then turned for the colonoscopy. A digital rectal exam was performed which was abnormal for.? A distal attachment cap was affixed to the tip of the scope and the colonoscope was then inserted through the anus and advanced through the colon and advanced to the cecum at 75 cm and terminal ile um.? Appendiceal orifice and ileocecal valve were identified. Mucosa was carefully examined under high definition white light as the instrument was slowly withdrawn in a retrograde panoramic fashion. Retroflexion was performed in rectum. The procedure was not difficult. The quality of the prep was BBPS: 2+3+2 = adequate Withdrawal time 24 minutes Limitations: No limitations Findings: Mucosa: Normal colon and terminal ileum mucosa. Protruding lesions: * 5 sessile polyps of size 2-10 mm in ascending colon. Cold snare polypectomy was performed. The polyps were completely removed and retrieved. * 4 sessile polyps of size 4-12 mm noted in transverse colon. Cold snare polypectomy was performed. The polyps were completely removed and retrieved. * 1 pedunculated polyp of size 15 mm noted in transverse colon. Hot snare polypectomy was performed. The polyp was completely removed and retrieved. * 2 sessile polyps of size 1-5 mm in descending colon. Cold snare polypectomy was performed. The polyps were completely removed and retrieved. * 2 sessile polyp of size 2-5 mm noted in sigmoid colon. Cold snare polypectomy was performed. The polyps were completely removed and retrieved. * Medium internal hemorrhoids without stigmata of recent bleeding. Impression: 1. Normal esophagus (biopsy) 2. Paraesophageal hernia 3. Normal stomach (biopsy) 4. Duodenitis (biopsy) 5. Normal colon mucosa 6. Total of 14 polyps removed 7. Diverticulosis 8. Internal and external hemorrhoids Recommendations:?? * Follow-up path results * Avoid NSAIDs and smoking * Cont PPI * Consider outpatient barium swallow for hiatal hernia evaluation * Repeat colonoscopy in 1 year if 10 or more polyps are adenoma. PATHOLOGY: Diagnosis A. Duodenum, biopsy: Duodenal mucosa within normal limits. B. Stomach, random, biopsy: Antral-type and oxyntic mucosa with moderate chronic inactive inflammation; no Helicobacter organisms seen. C. GE junction, biopsy: - Squamous epithelium within normal limits; no inflammation seen. - No glandular epithelium present. D. Colon, sigmoid, polypectomies: - Hyperplastic mucosal polyp. - Colonic mucosa with mild surface hyperplastic changes. E. Colon, ascending, polypectomies: Fragments of tubular adenomata; negative for high-grade dysplasia or carcinoma. F. Colon, transverse, polypectomies: Fragments of tubular adenomata; negative for high-grade dysplasia or carcinoma. G. Colon, transverse 15 mm, polypectomy: Tubular adenoma; negative for high- grade dysplasia or carcinoma. H. Colon, descending, polypectomies: - Tubular adenoma; negative for high-grade dysplasia or carcinoma. - Colonic mucosa with mild surface hyperplastic changes TODAY'S VISIT: Patient is here today for follow-up and to discuss upper endoscopy and colonoscopy results. Both procedure pathology results discussed with patient. Fourteen polyps total most of them were tubular adenomas. Patient should get genetic testing done, however patient reports that she is changing her insurance and she will call us when she does that so she can get coverage. Right now patient has to pay very high co-pay for everything. She denies any GI concerning symptoms. Patient is reporting that she is moving her bowels without any issues. Verified with patient again no family history of CRC. Patient denies melena, hematochezia, unintentional weight loss or ribbon like stools. Patient reports that she has been doing well. Moving her bowels without any issues. Currently taking omeprazole and reports that her reflux has been controlled. [facility] Medical History (Updated 12/05/24 @ 09:56 by Nicolasa Nelson, [facility]) Polyposis of colon Transaminitis History of adenomatous polyp of colon Encounter for annual wellness visit (AWV) in Medicare patient Vitamin D deficiency Fracture of left tibia and fibula Diabetic retinopathy screening Menopause Vitamin D deficiency Tubular adenoma of colon Fatty liver Chronic GERD Uterine fibroid Acquired hypothyroidism History of radioactive iodine thyroid ablation Graves' disease in remission CAD (coronary artery disease) Essential hypertension Dyslipidemia Type 2 diabetes mellitus without complication, with no history of insulin use Surgical History History of heart artery stent Tibia/fibula fracture History of tubal ligation Family History Father Pancreatic cancer Mother Alzheimer's disease Dementia Breast cancer Social History Housing: House Alcohol intake: current Alcohol intake frequency: 0-2 drinks per day Patient Tobacco Use Status: Former Tobacco user Tobacco use type: Cigarette Years Smoked: 30 years e-Cigarette/Vaping Use: Never Used service: No Current occupational status: retired Cognitive needs: No Hearing needs: No Vision needs: Yes Review of Systems Const Denies weight gain and Denies weight loss ENT Reports no additional complaints, Denies dysphagia and Denies odynophagia Card Reports no additional complaints Resp Reports no additional complaints GI Denies abdominal pain, Denies belching, Denies melena, Denies bloating, Denies change in bowel habits, Denies dysphagia, Denies excessive flatus, Denies dyspepsia, Reports heartburn, Denies diarrhea, Reports loose stools (When taking metformin), Denies nausea, Denies odynophagia and Denies vomiting Reports no additional complaints Musc Reports no additional complaints Neuro Reports no additional complaints Psych Reports no additional complaints Endo Reports no additional complaints Physical Exam Vital Signs: Last Vital Signs Pulse 68 12/05/24 09:23 BP 132/58 L 12/05/24 09:23 Pulse Ox 96 12/05/24 09:23 Oxygen Delivery Method Room Air 12/05/24 09:23 BMI result Body Mass Index 31.4 Const General: healthy appearing and no acute distress Nutritional Appearance: well nourished and obese Orientation/consciousness: patient oriented x3 Resp Effort & Inspection: normal respiratory effort, able to speak in complete sentences, no tracheal deviation and symmetric chest movement Auscultation: clear to auscultation bilaterally Cardio Rate: regular rate GI Inspection: Yes normal to inspection, No distended and Yes obesity Palpation (GI): Soft to palpation, not firm, nontender and No hepatosplenomegaly present Auscultation: normal bowel sounds General: Yes no CVA tenderness Back/Spine/Pelvis Back: no CVA tenderness Skin General skin exam: elasticity normal, turgor normal and dry skin Neuro General: patient oriented x3 Psych Appearance: grossly normal Mental Status: mental status grossly normal Assessment & Plan Assessment & Plan (1) Chronic GERD: Code(s): K21.9 - Gastro-esophageal reflux disease without esophagitis Category: Medical (2) Fatty liver: Code(s): K76.0 - Fatty (change of) liver, not elsewhere classified Category: Medical (3) Transaminitis: Code(s): R74.01 - Elevation of levels of liver transaminase levels Category: Medical (4) Tubular adenoma of colon: Comment: Seen on colonoscopy done [address] Cunningham to be repeated in 5 years Code(s): D12.6 - Benign neoplasm of colon, unspecified Category: Medical (5) History of adenomatous polyp of colon: Code(s): Z86.010 - Personal history of colon polyps Category: Medical (6) Polyposis of colon: Code(s): K63.5 - Polyp of colon Category: Medical Plan Patient will be returning for procedure in June of next year. Patient will call our office when she changes her insurance. Patient believes that that will happen next month or towards the end of the year. We will send patient for genetic testing to rule out FAP. Nurse Carlos explained to patient that the co- pay is low even if patient does not have insurance that covers that. Patient is opting to call us when she changes her insurance. She will be seen in the office after her procedure. Patient was encouraged to call us if she will have any GI concerning symptoms. She is agreeable to this plan and verbalizes understanding of instructions. She was given the opportunity to ask questions and all questions answered. Thank you for allowing me to participate in her care Orders: Referrals GI Procedure Notification Z12.11 - Encounter for screening for malignant neoplasm of colon Medications: New bisacodyl (Dulcolax (bisacodyl)) take 4 tabs at noon the day before your colonoscopy 20 mg (4 x 5 mg) PO ONCE 4 tabs 0RF constipation 1 day Z12.11 - Encounter for screening for malignant neoplasm of colon polyethylene glycol 3350 (Miralax) As directed by gastroenterology department at [facility] 238 grams PO ONCE 238 grams 0RF Z12.11 - Encounter for screening for malignant neoplasm of colon Coding Level of Care Code Est Pt Level 3 (10222) Diagnoses Chronic GERD K21.9 Fatty liver K76.0 Transaminitis R74.01 Tubular adenoma of colon D12.6 History of adenomatous polyp of colon Z86.010 Polyposis of colon K63.5 Time Spent (min) 30 Comment 20 minutes spent with patient and additional 10 minutes spent reviewing her records
[2024-12-05 09:23] VITALS: BP 132/58; PULSE 68; O2SAT 96; BMI 31.4
== END 2024-12-05 10:00 | disposition home or self-care (01) ==
PROVIDERS: PCP Internal Medicine; Visit Provider Nurse Practitioner Family
DX: K21.9 Gastro-esophageal reflux disease without esophagitis (principal); K76.0 Fatty (change of) liver, not elsewhere classified; R74.01 Elevation of levels of liver transaminase levels; D12.6 Benign neoplasm of colon, unspecified; Z86.0100 Personal history of colon polyps, unspecified; K63.5 Polyp of colon
CPT/HCPCS: 99213

== ENCOUNTER → 2024-12-05 09:07 | Outpatient (BNVA) | payer MEDICARE, SELFPAY | PROVIDERS: PCP Internal Medicine; Visit Provider Nurse Practitioner Family | DX: K21.9 Gastro-esophageal reflux disease without esophagitis (principal); K76.0 Fatty (change of) liver, not elsewhere classified; K63.5 Polyp of colon; R74.01 Elevation of levels of liver transaminase levels; D12.6 Benign neoplasm of colon, unspecified; Z86.0101 Personal history of adenomatous and serrated colon polyps | CPT/HCPCS: 99212 ==

== ENCOUNTER 2025-01-20 09:07 | Outpatient (REF) | payer MEDICARE, SELFPAY ==
[2025-01-20 12:03] LABS: Free T4 (Free Thyroxine) 1.18 ng/dL (0.71-1.85); Thyroid Stimulating Hormone 2.31 uIU/mL (0.32-4.0)
[2025-01-20 12:05] LABS: Anion Gap 11 (12-20)
[2025-01-20 12:09] LABS: Alanine Aminotransferase 25 U/L (0-31); Aspartate Amino Transferase 26 U/L (5-31); Blood Urea Nitrogen 14 mg/dL (9-16); Calcium 9.0 mg/dL (8.4-10.2); Carbon Dioxide 27 mmol/L (22-29); Chloride 109 mmol/L (96-108); Cholesterol 131 mg/dL (<200); Estimated Glomerular Filt Rate > 60; HDL Cholesterol 40 mg/dL (>40); Potassium 4.1 mmol/L (3.3-5.1); Sodium 143 mmol/L (135-145); Triglycerides 147 mg/dL (<150)
== END 2025-01-20 09:08 | disposition home or self-care (01) ==
LOC: HO.HMGCLDS 09:07
PROVIDERS: PCP Internal Medicine; Visit Provider Internal Medicine
DX: Z00.00 Encounter for general adult medical examination without abnormal findings (principal); I10 Essential (primary) hypertension; E11.9 Type 2 diabetes mellitus without complications; I25.10 Atherosclerotic heart disease of native coronary artery without angina pectoris; K76.0 Fatty (change of) liver, not elsewhere classified; E78.5 Hyperlipidemia, unspecified; E03.9 Hypothyroidism, unspecified; Z86.0100 Personal history of colon polyps, unspecified; Z95.5 Presence of coronary angioplasty implant and graft; Z71.89 Other specified counseling
CPT/HCPCS: 36415; 80048; 80061; 82306; 83036; 84439; 84443; 84450; 84460

== ENCOUNTER 2025-01-27 09:10 | Outpatient (AMB) | payer MEDICARE, SELFPAY ==
[2025-01-27 09:44] VITALS: BP 146/72; PULSE 70; RESP 16; TEMP 36.6; O2SAT 96; BMI 32.3
--- NOTE | 2025-01-27 09:44 | MHC.PC.OV ---
Vital Signs 01/27/25 09:44 Height 5 ft 4 in Weight 188 lb BMI 32.3 BP 146/72 H Blood Pressure Location Rt brachial Position Sitting Respiration 16 Pulse 70 Pulse Source Pulse Oximeter Temp 97.8 F Temp Source Oral Pulse Oximetry (%) 96 Oxygen Delivery Method Room Air Intake Visit Reasons: 3 month visit Intake Note: Pt is here today for her 3mo. f/u Allergies canagliflozin (Invokana) Adverse Reaction (Unknown, Verified 01/27/25 10:06) yeast infection Medication List - Last Reconciled 01/27/25 by Arlene Dawkins MD aspirin (Adult Aspirin Regimen) 81 mg PO DAILY ezetimibe 10 mg PO DAILY Januvia (sitagliptin phosphate) 100 mg PO DAILY NS lancets Test blood sugar once a day levothyroxine 112 mcg PO DAILY losartan 25 mg PO DAILY metoprolol succinate ER 50 mg PO DAILY omeprazole 20 mg PO DAILY OneTouch Ultra Test (blood sugar diagnostic) Test blood sugar once a day NS OneTouch Ultra2 Meter (blood-glucose meter) As directed NS rosuvastatin 40 mg PO DAILY Tobacco use date assessed: 01/27/25 Fall risk assessment: No Falls in past year Last assessed Fall Risk: 01/27/25 Dental Screening Dental Screen Date: 01/27/25 Did you have a dental visit in the last 12 months?: No Did you have a dental problem in the last 6 months where you did not have access to dental care?: No Was dental information given to patient?: Patient declined HPI HPI Comments History of Present Illness Details The patient is a 69 year old female with past medical history of hypertension, diabetes, and hyperlipidemia, here today for her follow up. Her blood pressure today is noted to be elevated . She takes her metoprolol at night and losartan in the morning. She however admits to being sedentary for the past three months due to cold weather and reports doing nothing and watching TV. Her appetite is unchanged. She has Diabetes mellitus , and recently started taking Januvia. Her A1c from September was 7%, which is higher than the previous year. Her fasting lipid results from September showed a total cholesterol less than 200, good LDL, but decreased good cholesterol , which she attributes to lack of exercise. She takes ezetimibe. Latest thyroid levels are within normal limits, compliant with taking her levothyroxine For gastrointestinal health, she recently had a colonoscopy and EGD with Dr. Camila Betts. The colonoscopy revealed 9 to 14 polyps, with pathology showing three precancerous tubular polyps. A repeat colonoscopy was recommended in one year. The EGD was normal except for a hiatal hernia. For health maintenance, she is scheduled for a mammogram and a bone density scan in April. She has an upcoming diabetic eye exam in February. [facility] Medical History (Updated 02/02/25 @ 21:55 by Arlene Dawkins MD) Polyposis of colon Transaminitis History of adenomatous polyp of colon Encounter for annual wellness visit (AWV) in Medicare patient Diabetic retinopathy screening Menopause Vitamin D deficiency Fatty liver Chronic GERD Uterine fibroid Acquired hypothyroidism History of radioactive iodine thyroid ablation Graves' disease in remission CAD (coronary artery disease) Essential hypertension Dyslipidemia Type 2 diabetes mellitus without complication, with no history of insulin use Surgical History (Updated 02/02/25 @ 21:55 by Arlene Dawkins MD) History of heart artery stent Tibia/fibula fracture History of tubal ligation Family History Father Pancreatic cancer Mother Alzheimer's disease Dementia Breast cancer Social History Housing: House Alcohol intake: current Alcohol intake frequency: 0-2 drinks per day Patient Tobacco Use Status: Former Tobacco user Tobacco use type: Cigarette Years Smoked: 30 years e-Cigarette/Vaping Use: Never Used service: No Current occupational status: retired Cognitive needs: No Hearing needs: No Vision needs: Yes Questionnaire Thrive Questionnaire Date Thrive assessed: 10/23/24 I am a: Patient What is your living situation today?: I have a steady place to live Within the past 12 months, did the food you bought not last and you didn't have the money to get more?: Never true Within the past 12 months, did you worry whether your food would run out before you got money to buy more?: Never true Do you have trouble paying for medicines?: No Do you have trouble getting transportation to medical appointments?: No Do you have trouble paying your heating and electricity bill?: No Do you have trouble taking care of your child, family member or friend?: No Do you have trouble with day-to-day activities such as bathing, preparing meals, shopping, managing finances, etc.?: No Are you currently unemployed and looking for a job?: No Are you interested in more education?: No Please select the resources that you would like help with: None Currently or been in a relationship where the following occur: No concerns reported THRIVE Score: 0 BRIANNA-7 AMB Questionnaire BRIANNA-7 Date BRIANNA - 7 assessed: 10/23/24 Source: Developed by Drs. Evan Johnson, Sushila Juarez, Stan Blount and colleagues, with an educational pawan from [employer]. Review of Systems Narrative Const Denies body aches, Denies fatigue, Denies fever(s), Denies headache(s) and Denies weakness Eyes Details: sees Dr. Elizondo Denies change in vision ENT Denies dizziness, Denies headache(s) and Denies nasal discharge Card Denies chest pain, Denies lightheadedness, Denies palpitations and Denies dyspnea Resp Denies chest congestion, Denies cough, Denies dyspnea and Denies wheezing GI Denies abdominal pain, Denies change in bowel habits and Denies heartburn Denies urinary frequency, Denies dysuria and Denies urinary urgency Musc Denies back pain, Denies myalgias, Denies joint swelling and Denies muscle weakness Skin/Breast Denies lesions and Denies rash Neuro Denies dizziness, Denies headache(s) and Denies weakness Psych Reports no additional complaints Endo Denies fatigue, Denies polydipsia, Denies polyuria and Denies palpitations Destin/Lymph Denies easy bruising Aller/Immun Denies seasonal rhinorrhea and Denies wheezing Physical exam (Primary Care) Vital Signs: Last Vital Signs Temp 97.8 F 01/27/25 09:44 Pulse 70 01/27/25 09:44 Resp 16 01/27/25 09:44 BP 146/72 H 01/27/25 09:44 Pulse Ox 96 01/27/25 09:44 Oxygen Delivery Method Room Air 01/27/25 09:44 BMI result Body Mass Index 32.3 Tobacco/Smoking Status: Tobacco use Status Tobacco use date assessed 01/27/25 01/27/25 09:51 Patient Tobacco Use Status Former Tobacco user 01/27/25 09:51 Tobacco use type Cigarette 01/27/25 09:51 e-Cigarette/Vaping Use Never Used 01/27/25 09:51 Thrive Assessment: Date of Thrive Assessment Date Thrive assessed 10/23/24 01/27/25 09:51 Currently or been in a relationship where the following occur: No concerns reported Narrative Const General: no acute distress Nutritional Appearance: obese Orientation/consciousness: patient oriented x3 HENMT Ears: external ears normal General nose exam: Normal external nose present Mouth: oropharynx normal and moist mucous membranes Eyes General: appearance normal, both eyes and all related structures Conjunctivae: conjunctivae normal Pupils: Equal, round and reactive pupils present EOM: EOMs intact bilaterally Neck Neck: Yes full ROM, Yes no lymphadenopathy and Yes supple Resp Effort & Inspection: normal respiratory effort and able to speak in complete sentences Auscultation: clear to auscultation bilaterally Cardio Rate: regular rate Rhythm: regular rhythm Heart sounds: S1 normal heart sound present and S2 normal heart sound present GI Inspection: Yes normal to inspection Palpation (GI): Soft to palpation, nontender and no masses Auscultation: normal bowel sounds General: Yes no CVA tenderness Back/Spine/Pelvis Back: no CVA tenderness and No back tenderness Skin General skin exam: no rashes or lesions noted Neuro General: patient oriented x3, gait normal, tone normal, moves all extremities and normal sensation to monofilament Cranial nerves: Yes Equal, round and reactive pupils present Cognition (Neuro): normal cognition Gait exam (Neuro): Normal gait present Motor exam (neuro): 5/5 motor strength present throughout Extrem General: Yes no joint enlargement, Yes no pedal edema, Yes no calf tenderness and Yes normal gait Psych Appearance: grossly normal and well kempt Mental Status: mental status grossly normal Speech and movement: Normal speech and movement present Affect: normal affect Results Reviewed Results Reviewed: Name: Chloe Fisher Age/Sex: 69/F : 1955 Unit#: [id number] Attend Dr: Arlene Dawkins MD Re01/20/25 Status: DEP REF Location: [facility] Disch: SPEC : [id number] SHANE: 01/20/25 STATUS: COMP REQ : [id number] RECD: 01/20/25-[address]: Arlene Dawkins MD COMP: 01/20/25120 ENTERED: 01/20/[address] [facility] [address]: ORDERED: Met Prof Fast, AST, ALT, Lipid Panel, Vitamin D 25-OH, Free T4, TSH Test Result Flag Reference Sodium 143 135-145 mmol/L Potassium 4.1 3.3-5.1 mmol/L CL 109 H 96-108 mmol/L CO2 27 22-29 mmol/L Gap 11 L 12-20 BUN 14 9-16 mg/dL Creat 0.65 0.5-1.4 mg/dL eGFR > 60 Chronic Kidney Disease: Estimated GFR < 60 mL/min/1.73m2 Severe Kidney Disease: Estimated GFR < 15 mL/min/1.73m2 FBS 129 H 60-99 mg/dL A fasting glucose of 126 mg/dl or greater on more than one occasion is considered diagnostic of diabetes. CA 9.0 8.4-10.2 mg/dL AST (GOT) 26 5-31 U/L ALT (GPT) 25 0-31 U/L Triglyceride 147 <150 mg/dL Desirable Triglyceride: less than 150 mg/dL Borderline High Triglyceride 150-199 mg/dL High Triglyceride: 200-499 mg/dL Very High Triglyceride: greater than or equal to 5OO mg/dL Cholesterol 131 <200 mg/dL Desirable Cholesterol: less than 200 mg/dL Borderline High Cholesterol: 200-239 mg/dL High Cholesterol: greater than 239 mg/dL LDL Calculated 62 <100 mg/dL Desirable LDL: less than 100 mg/dL Near Optimal/Above Optimal LDL: 110-129 mg/dL Borderline High LDL: 130-159 mg/dL High LDL: 160-189 mg/dL Very High LDL: greater than or equal to 190 mg/dL HDL 40 L >40 mg/dL Desirable HDL: greater than 40 mg/dL Note: This HDL assay may give artificially low results in patients with liver disease. Vitamin D 25-OH 20.6 L >30 ng/mL Health Based Reference Values* < 20 ng/mL Deficient 20-30 ng/mL Insufficient > 30 ng/mL Sufficient *Jen PIEDRA. N Engl J Med. 2007;357:266-280 There is no well-established upper level of normal vitamin D levels. Some laboratories use 50 ng/mL as an upper limit of normal. However, toxicity is patient-dependent and may occur at any level. Careful correlation with the patient's presentation is necessary and, if there is concern for vitamin D toxicity, treatment should be considered irrespective of the serum level. Care must be taken in interpreting Vitamin D results from different laboratories and methodologies. Published data demonstrated that results from patients undergoing hemodialysis may show a negative bias when tested with various automated 25-OH vitamin D assays when compared to LC-MS/MS. When testing samples from patients whose predominant form of Vitamin D is Vitamin D2, such as patients receiving Vitamin D2 supplementation, results that are subtherapeutic should be confirmed with another method such as LC-MS/MS. Free T4 1.18 0.71-1.85 ng/dL TSH 3rd Gen. 2.31 0.32-4.0 uIU/mL TSH 3rd Generation ([facility]) Laboratory Tests 10/19/24 01/20/25 09:50 09:19 Estimat Average Glucose 154 Hemoglobin A1c % 7.0 H Urine Creatinine 141.15 Urine Microalbumin 28.0 Microalb/Creat Ratio 19.8 Coding Level of Care Code Est Pt Level 4 (52342) Diagnoses Essential hypertension I10 Type 2 diabetes mellitus without complication, with no history of insulin use E11.9 Acquired hypothyroidism E03.9 Dyslipidemia E78.5 Assessment & Plan Assessment & Plan (1) Essential hypertension: Code(s): I10 - Essential (primary) hypertension Category: Medical Plan: The patient presents with an elevated blood pressure reading despite taking her medication this morning. The current regimen is metoprolol at night and losartan 25 mg in the morning. The plan is to increase the losartan dosage to 50 mg by having her take two 25 mg pills daily. Patient to check blood pressure at home and keep a log of the readings. A nurse visit is scheduled for the first week of February for a blood pressure recheck to assess the efficacy of the new dosage. (2) Type 2 diabetes mellitus without complication, with no history of insulin use: Code(s): E11.9 - Type 2 diabetes mellitus without complications Category: Medical Plan: The patient's A1c was 7% in September, which is above the goal of below 6.5%. This is attributed to a recent lack of exercise. The current medication regimen includes Januvia. The plan is to continue current medications, encourage increased physical activity and recheck fasting labs before her follow-up appointment in April . Adjustments will be considered at that time if her glycemic control has not improved. She sees Dr. Elizondo for her routine eye check and retinopathy screening. She has a diabetic eye exam scheduled for February. She was advised to get her high-dose flu shot and consider a COVID-19 vaccine. (3) Acquired hypothyroidism: Code(s): E03.9 - Hypothyroidism, unspecified Category: Medical Plan: Thyroid levels are within normal limits continue current dose of levothyroxine 112 mcg taken daily (4) Dyslipidemia: Code(s): E78.5 - Hyperlipidemia, unspecified Category: Medical Plan: Reviewed recent fasting lipid profile with patient with levels within normal limits except for low HDL cholesterol . Continue ezetimibe 10 mg daily , in addition to adherence to low-cholesterol diet and regular exercise, at least 30 minutes 3 to 4 times a week. Advised patient to make healthy food choices, eat more fruits, vegetables, whole grains, wild caught fish and low-fat dairy. Limit amount of meat and fried or fatty food products, as well as processed foods and fast foods. Follow-up scheduled with repeat fasting lipid panel in 4 months. Plan 5
== END 2025-01-27 10:28 | disposition home or self-care (01) ==
LOC: HO.HMCC 09:11
PROVIDERS: PCP Internal Medicine; Visit Provider Internal Medicine
DX: I10 Essential (primary) hypertension (principal); E11.9 Type 2 diabetes mellitus without complications; E03.9 Hypothyroidism, unspecified; E78.5 Hyperlipidemia, unspecified

== ENCOUNTER → 2025-01-27 09:10 | Outpatient (BNVA) | payer MEDICARE, SELFPAY | PROVIDERS: PCP Internal Medicine; Visit Provider Internal Medicine | DX: I10 Essential (primary) hypertension (principal); E11.9 Type 2 diabetes mellitus without complications; E03.9 Hypothyroidism, unspecified; E78.5 Hyperlipidemia, unspecified | CPT/HCPCS: 99212 ==

== ENCOUNTER → 2025-02-14 09:52 | Outpatient (BNVA) | payer MEDICARE, SELFPAY | PROVIDERS: PCP Internal Medicine | DX: I10 Essential (primary) hypertension (principal); Z01.31 Encounter for examination of blood pressure with abnormal findings; Z87.891 Personal history of nicotine dependence | CPT/HCPCS: 99211 ==